=== PATIENT | female | born 1960 | race Two or more races ===

== ENCOUNTER → 2018-10-27 | Outpatient (CLI) | payer OTHER ==
[2016-08-09 15:14] VITALS: BP 130/79
[~2018-10-27] MED LIST: ASPI-630 PO; CETI10TA16 PO; ESCITALOPRAM OX10 MG PO; HYDR-2145 PO; HYDR12.58 PO; INSU100I11 SQ; INSU100V13 SQ; LAMO200T2 PO; LAMO50TA3 PO; LOSA-73 PO; LOSA25TA54 PO; METF10007 PO; METF500T16 PO; NEED1DIS MC; OMEP20TA8 PO; OMEP40CA5 PO; OXYC1TAB15 PO
--- NOTE | 2018-10-31 09:31 | KCIC ---
Bilateral digital screening mammograms with 3-D tomosynthesis: Reason for examination: Routine screening. Large hematoma right medial breast for one week possibly from carrying a box. Comparison is made to previous study dated 11/23/2014. Bilateral mammograms in CC and oblique projections were obtained with 2-D imaging and 3-D tomosynthesis imaging on a Siemens Inspiration unit and reviewed on the workstation. Interpretation was made with the benefit of CAD. The skin and nipples show no abnormalities. No abnormal axillary lymph nodes are seen. The breast parenchyma shows scattered fatty and fibroglandular density. (Breast density: Category B.) There are no dominant masses, suspicious calcifications or architectural distortion. Benign calcifications are present. Impression: No evidence of malignancy. Recommend routine screening. BI-RAD Category 2: Benign. "Our facility is accredited by the [employer] Mammography Program." This patient's information has been entered into a reminder system for the patient to be notified with the results of her examination and a target date for the next mammogram. Electronically signed by: Rosario Calles MD (10/31/2018 9:28 AM) [id number]
== END | disposition home or self-care (01) ==
LOC: KCIC 15:14
PROVIDERS: ATTEND Family Medicine
DX: Z12.31 Encounter for screening mammogram for malignant neoplasm of breast (principal); N64.89 Other specified disorders of breast
CPT/HCPCS: 77063; 77067

== ENCOUNTER → 2020-07-25 | Outpatient (CLI) | payer BC, OTHER ==
[2016-08-09 15:14] VITALS: BP 130/79
[~2020-07-25] MED LIST changes: -LAMO200T2 PO; +LAMO200T6 PO; +OMEP40CA45 PO; -OMEP40CA5 PO
--- NOTE | 2020-07-25 08:23 | RAD ---
Examination: Bilateral venous Doppler Indication: Leg swelling Technique: Ultrasound evaluation of the bilateral lower extremities was performed from the groin to t he upper calf with hooker scale, spectral and color doppler evaluation. Comparison: None Findings: There is normal venous flow and compressibility of bilateral common femoral veins, femoral veins, popliteal veins, and visualized proximal calf veins. Impression: No evidence for deep vein thrombosis of bilateral lower extremities from the level of the calf veins to the groins. Electronically signed by: Nigel Lamar MD (07/25/2020 8:21 AM) [id number]
== END ==
LOC: US 07:14
PROVIDERS: ATTEND Psychiatry & Neurology Neurology with Special Qualifications in Child Neurology
DX: M79.604 Pain in right leg (principal); M79.605 Pain in left leg
CPT/HCPCS: 93970

== ENCOUNTER 2021-01-24 19:31 | Emergency (ER) | payer BC ==
[~2021-01-24] VITALS: Ht 157.5 cm; Wt 95.0 kg
[~2021-01-24 19:31] MED LIST changes: -OMEP40CA45 PO; +OMEP40CA7 PO
[2021-01-24] MEDS ORDERED: ONDANSETRON PF 4 MG/2 ML VIAL. IVP ONE (21:15)
[2021-01-24] MEDS ORDERED: fentaNYL PF VIAL 100 MCG/2 ML VIAL IVP ONE (21:15)
[2021-01-24] MEDS ORDERED: FAMOTIDINE 20 MG/2 ML VIAL IVP ONE (21:15)
[2021-01-24 21:44] LABS: BASO # 0.1 x10^3/uL (0.0-0.2); BASO % 1 % (0-3); EOS # 0.1 x10^3/uL (0.0-0.7); EOS % 2 % (0-3); HEMATOCRIT 46.1 % (36.0-47.0); HEMOGLOBIN 14.9 g/dL (12.0-15.5); LYMPH # 2.8 x10^3/uL (1.0-4.8); LYMPH % 28 % (24-48); MEAN CORPUSCULAR HEMOGLOBIN 27 pg (25-35); MEAN CORPUSCULAR HGB CONC 32 g/dL (31-37); MEAN CORPUSCULAR VOLUME 83 fL (79-100); MONO # 0.8 x10^3/uL (0.0-1.1); MONO % 8 % (0-9); NEUT # 6.3 x10^3/uL (1.8-7.7); NEUT % 62 % (31-73); PLATELET COUNT 236 x10^3/uL (140-400); RED BLOOD COUNT 5.59 x10^6/uL (3.50-5.40); RED CELL DISTRIBUTION WIDTH 17.7 % (11.5-14.5); WHITE BLOOD COUNT 10.1 x10^3/uL (4.0-11.0)
[2021-01-24 21:46] LABS: BILIRUBIN,URINE MODERATE (NEG); CLARITY,URINE CLEAR; COLOR,URINE YELLOW; NITRITE,URINE NEGATIVE (NEG); PROTEIN,URINE NEGATIVE (NEG-TRACE)
[2021-01-24 21:53] LABS: AMPHETAMINE/METHAMPHETAMINE NEG (NEG); BARBITURATES NEG (NEG); BENZODIAZEPINES NEG (NEG); CANNABINOIDS NEG (NEG); COCAINE NEG (NEG); METHADONE NEG (NEG); OPIATES NEG (NEG); PHENCYCLIDINE NEG (NEG)
[2021-01-24 21:54] LABS: BACTERIA,URINE FEW /HPF (0-FEW); RBC,URINE OCC /HPF (0-2); WBC,URINE TNTC /HPF (0-4)
[2021-01-24 21:58] LABS: CALCIUM 9.6 mg/dL (8.5-10.1); CREATININE 0.9 mg/dL (0.6-1.0); GFR 64.1; POTASSIUM 3.1 mmol/L (3.5-5.1)
[2021-01-24 22:00] LABS: ALBUMIN 4.5 g/dL (3.4-5.0); ALBUMIN/GLOBULIN RATIO 1.3 (1.0-1.7); TOTAL BILIRUBIN 0.5 mg/dL (0.2-1.0)
[2021-01-24] MEDS ORDERED: IOHEXOL 300 MG/ML 100ML VIAL. IV ONE (22:15)
[2021-01-24] MEDS ORDERED: CONTRAST GIVEN. MC PRN (22:15)
--- NOTE | 2021-01-24 22:29 | RAD ---
Exam: CT of abdomen and pelvis with contrast INDICATION: Epigastric pain TECHNIQUE: Sequential axial images through the abdomen and pelvis obtained following the administrati on of 75 mL of Isovue-370 IV contrast. Sagittal and coronal reformatted images were reconstructed fro m the axial data and reviewed. Exposure: One or more of the following in the visualized dose reduction techniques were utilized for this examination: 1. Automated exposure control 2. Adjustment of the MA and/or KV according to patient size 3. Use of iterative of reconstructive technique Comparisons: None FINDINGS: Heart size is normal. No pericardial effusion. Strandy opacities the dependent portion lungs likely r epresenting atelectasis. No pleural effusion. Liver, spleen, pancreas and adrenals are unremarkable. Gallstone noted in the gallbladder is mildly distended. No perinephric inflammation or hydronephrosis. No renal or ureteral calculi are identified. Bladder is partially distended and not well evaluated. Uterus not enlarged. No abnormal adnexal mass. Large and small bowel are unremarkable. Appendix is normal. No free intra-abdominal air or fluid. No obstruction. Abdominal aorta has normal course and caliber. Abdominal vasculature is patent. No enlarged intra-abdominal lymph nodes are identified. No suspicious osseous lesions or acute fractures. IMPRESSION: 1. No acute process identified within the abdomen or pelvis. 2. Moderate amount stool noted in the colon, correlate for constipation. Electronically signed by: Nadya Quinn MD (01/24/2021 10:27 PM) [facility]
[2021-01-24] MEDS ORDERED: POTASSIUM BICARB 20 MEQ EFFERVESCENT TABLET. PO ONE (22:30)
[2021-01-24] MEDS ORDERED: BISACODYL 5 MG TABLET.DR. PO STA (23:15)
[2021-01-24] MEDS ORDERED: MAGNESIUM CITRATE 296 ML SOLUTION. PO ONE (23:15)
--- NOTE | 2021-01-24 23:17 | PHYS DOC ---
Past Medical History Past Medical History: Constipation, Diabetes-Type II, Seizure Past Surgical History: Other Additional Past Surgical Histo: RT CATARACT, RT MENISUCS REPAIR Smoking Status: Never Smoker Alcohol Use: None Drug Use: None General Adult EDM: Chief Complaint: NAUSEA/VOMITING/DIARRHEA HPI: HPI: Patient is a 60 year old female with a history of diabetes type 2, seizures, constipation, who presents to the ED today complaining of nausea and vomiting that began 5 days ago. Patient is also complaining of intermittent epigastric abdominal pain typically during vomiting episodes. Patient denies any fever. Denies any diarrhea. Denies any chest pain or shortness of breath. Review of Systems: Review of Systems: Constitutional: Denies fever or chills. [] Eyes: Denies change in visual acuity. [] HENT: Denies nasal congestion or sore throat. [] Respiratory: Denies cough or shortness of breath. [] Cardiovascular: Denies chest pain or edema. [] GI: Reports epigastric abdominal pain with nausea and vomiting, denies bloody stools or diarrhea. [] : Denies dysuria. [] Musculoskeletal: Denies back pain or joint pain. [] Integument: Denies rash. [] Neurologic: Denies headache, focal weakness or sensory changes. [] Psychiatric: Denies depression or anxiety. [] Heart Score: C/O Chest Pain: N/A Risk Factors: Risk Factors: DM, Current or recent (<one month) smoker, HTN, HLP, family history of CAD, obesity. Risk Scores: Score 0 - 3: 2.5% MACE over next 6 weeks - Discharge Home Score 4 - 6: 20.3% MACE over next 6 weeks - Admit for Clinical Observation Score 7 - 10: 72.7% MACE over next 6 weeks - Early Invasive Strategies Current Medications: Current Medications Medications (Trade) Dose Ordered Sig/Sue Start Time Stop Time Status Last Admin Dose Admin Famotidine (Pepcid Vial) 20 mg 1X ONCE 01/24/21 21:15 01/24/21 21:18 DC 01/24/21 21:38 20 MG Fentanyl Citrate (Fentanyl 2ml Vial) 50 mcg 1X ONCE 01/24/21 21:15 01/24/21 21:18 DC 01/24/21 21:41 50 MCG Info (CONTRAST GIVEN -- Rx MONITORING) 1 each PRN DAILY PRN 01/24/21 22:15 01/26/21 22:14 Iohexol (Omnipaque 300 Mg/ml) 75 ml 1X ONCE 01/24/21 22:15 01/24/21 22:16 DC 01/24/21 22:12 75 ML Ondansetron HCl (Zofran) 4 mg 1X ONCE 01/24/21 21:15 01/24/21 21:18 DC 01/24/21 21:38 4 MG Potassium Bicarbonate (Potassium Effervescent Tablet) 40 meq 1X ONCE 01/24/21 22:30 01/24/21 22:31 DC Allergies: Allergies: Allergies Coded Allergies Type Severity Reaction Last Updated Verified No Known Drug Allergies 05/18/13 No Physical Exam: PE: Constitutional: Well developed, well nourished, no acute distress, non-toxic appearance. [] HENT: Normocephalic, atraumatic, bilateral external ears normal, oropharynx moist, no oral exudates, nose normal. [] Eyes: PERRLA, EOMI, conjunctiva normal, no discharge. [] Neck: Normal range of motion, no tenderness, supple, no stridor. [] Cardiovascular:Heart rate regular rhythm, no murmur [] Lungs & Thorax: Bilateral breath sounds clear to auscultation [] Abdomen: Bowel sounds normal, soft, mild epigastric tenderness, no right upper quadrant or right lower quadrant tenderness, no masses, no pulsatile masses. [] Skin: Warm, dry, no erythema, no rash. [] Back: No tenderness, no CVA tenderness. [] Extremities: No tenderness, no cyanosis, no clubbing, ROM intact, no edema. [] Neurologic: Alert and oriented X 3, normal motor function, normal sensory func tion, no focal deficits noted. [] Psychologic: Affect normal, judgement normal, mood normal. [] Current Patient Data: Labs: Laboratory Tests Test 01/24/21 21:12 01/24/21 21:24 01/24/21 21:56 Urine Collection Type Unknown Urine Color Yellow Urine Clarity Clear Urine pH 6.0 (<5.0-8.0) Urine Specific [place] >=1.030 (1.000-1.030) Urine Protein Negative mg/dL (NEG-TRACE) Urine Glucose (UA) >=1000 mg/dL (NEG) Urine Ketones (Stick) >=80 mg/dL (NEG) Urine Blood Negative (NEG) Urine Nitrite Negative (NEG) Urine Bilirubin Moderate (NEG) Urine Urobilinogen Dipstick 1.0 mg/dL (0.2 mg/dL) Urine Leukocyte Esterase Small (NEG) Urine RBC Occ /HPF (0-2) Urine WBC Tntc /HPF (0-4) Urine Squamous Epithelial Cells Few /LPF Urine Bacteria Few /HPF (0-FEW) Urine Mucus Slight /LPF Urine Opiates Screen Neg (NEG) Urine Methadone Screen Neg (NEG) Urine Barbiturates Neg (NEG) Urine Phencyclidine Screen Neg (NEG) Urine Amphetamine/Methamphetamine Neg (NEG) Urine Benzodiazepines Screen Neg (NEG) Urine Cocaine Screen Neg (NEG) Urine Cannabinoids Screen Neg (NEG) Urine Ethyl Alcohol Neg (NEG) White Blood Count 10.1 x10^3/uL (4.0-11.0) Red Blood Count 5.59 x10^6/uL (3.50-5.40) H Hemoglobin 14.9 g/dL (12.0-15.5) Hematocrit 46.1 % (36.0-47.0) Mean Corpuscular Volume 83 fL (79-100) Mean Corpuscular Hemoglobin 27 pg (25-35) Mean Corpuscular Hemoglobin Concent 32 g/dL (31-37) Red Cell Distribution Width 17.7 % (11.5-14.5) H Platelet Count 236 x10^3/uL (140-400) Neutrophils (%) (Auto) 62 % (31-73) Lymphocytes (%) (Auto) 28 % (24-48) Monocytes (%) (Auto) 8 % (0-9) Eosinophils (%) (Auto) 2 % (0-3) Basophils (%) (Auto) 1 % (0-3) Neutrophils # (Auto) 6.3 x10^3/uL (1.8-7.7) Lymphocytes # (Auto) 2.8 x10^3/uL (1.0-4.8) Monocytes # (Auto) 0.8 x10^3/uL (0.0-1.1) Eosinophils # (Auto) 0.1 x10^3/uL (0.0-0.7) Basophils # (Auto) 0.1 x10^3/uL (0.0-0.2) Sodium Level 141 mmol/L (136-145) Potassium Level 3.1 mmol/L (3.5-5.1) L Chloride Level 99 mmol/L (98-107) Carbon Dioxide Level 28 mmol/L (21-32) Anion Gap 14 (6-14) Blood Urea Nitrogen 23 mg/dL (7-20) H Creatinine 0.9 mg/dL (0.6-1.0) Estimated GFR (Cockcroft-Gault) 64.1 BUN/Creatinine Ratio 26 (6-20) H Glucose Level 146 mg/dL (70-99) H Calcium Level 9.6 mg/dL (8.5-10.1) Total Bilirubin 0.5 mg/dL (0.2-1.0) Aspartate Amino Transferase (AST) 19 U/L (15-37) Alanine Aminotransferase (ALT) 28 U/L (14-59) Alkaline Phosphatase 83 U/L (46-116) Total Protein 8.0 g/dL (6.4-8.2) Albumin 4.5 g/dL (3.4-5.0) Albumin/Globulin Ratio 1.3 (1.0-1.7) Lipase 75 U/L (73-393) Ethyl Alcohol Level < 10 mg/dL (0-10) SARS-CoV-2 Antigen (Rapid) Negative (NEGATIVE) Laboratory Tests 01/24/21 21:24 Laboratory Tests 01/24/21 21:24 Vital Signs: Vital Signs Date Time Temp Pulse Resp B/P (MAP) Pulse Ox O2 Delivery O2 Flow Rate FiO2 01/24/21 21:41 12 96 Room Air 01/24/21 21:10 98.0 79 101/60 (74) 98.0 EKG: EKG: [] Radiology/Procedures: Radiology/Procedures: []PROCEDURE: CT ABD PELV W/ IV CONTRST ONLY Exam: CT of abdomen and pelvis with contrast INDICATION: Epigastric pain TECHNIQUE: Sequential axial images through the abdomen and pelvis obtained following the administration of 75 mL of Isovue-370 IV contrast. Sagittal and coronal reformatted images were reconstructed from the axial data and reviewed. Exposure: One or more of the following in the visualized dose reduction techniques were utilized for this examination: 1. Automated exposure control 2. Adjustment of the MA and/or KV according to patient size 3. Use of iterative of reconstructive technique Comparisons: None FINDINGS: Heart size is normal. No pericardial effusion. Strandy opacities the dependent portion lungs likely representing atelectasis. No pleural effusion. Liver, spleen, pancreas and adrenals are unremarkable. Gallstone noted in the gallbladder is mildly distended. No perinephric inflammation or hydronephrosis. No renal or ureteral calculi are identified. Bladder is partially distended and not well evaluated. Uterus not enlarged. No abnormal adnexal mass. Large and small bowel are unremarkable. Appendix is normal. No free intra- abdominal air or fluid. No obstruction. Abdominal aorta has normal course and caliber. Abdominal vasculature is patent. No enlarged intra-abdominal lymph nodes are identified. No suspicious osseous lesions or acute fractures. IMPRESSION: 1. No acute process identified within the abdomen or pelvis. 2. Moderate amount stool noted in the colon, correlate for constipation. Electronically signed by: Nadya Lai MD (01/24/2021 10:27 PM) [facility] DICTATED and SIGNED BY: NADYA LAI MD DATE: 01/24/21 [id number] 0 Course & Med Decision Making: Course & Med Decision Making Pertinent Labs and Imaging studies reviewed. (See chart for details) This is a 60-year-old female patient presenting today complaining of nausea, vomiting, and epigastric abdominal pain, symptoms for 5 days. CBC with no acute findings, CMP with potassium of 3.1, patient was given oral potassium replacement. UA negative for infection. Negative rapid Covid test CT of the abdomen and pelvic noted for moderate stool in the colon otherwise no acute findings. Patient was given mag citrate and Dulcolax in the ED. Educated on constipation prevention and management. Dragon Disclaimer: DragLogisticare Disclaimer: This electronic medical record was generated, in whole or in part, using a voice recognition dictation system. Departure Departure Impression: Primary Impression: Hypokalemia Additional Impressions: Constipation Qualified Codes: K59.00 - Constipation, unspecified Nausea and vomiting Qualified Codes: R11.2 - Nausea with vomiting, unspecified Epigastric pain Disposition: HOME / SELF CARE / HOMELESS Condition: STABLE Referrals: KALANI MAGDALENO MD (PCP) follow up next week Patient Instructions: Constipation, Adult, Hypokalemia Additional Instructions: You were evaluated in the emergency room and noted to be constipated. Please increase your dietary fiber intake as well as your water intake. Please take Mi raLAX every day to prevent constipation. Anytime you are constipated consider taking magnesium citrate or milk of magnesium. You can also perform an enema anytime you are constipated use a suppository when constipated Scripts Ondansetron (ONDANSETRON ODT) 4 Mg Tab.rapdis 1 TAB PO PRN Q6-8HRS, #16 TAB Prov: RIKI HURD APRN 01/24/21 Polyethylene Glycol 3350 (MIRALAX) 119 Gm Powder 17 GM PO DAILY for constipation, #255 GM 0 Refills dissolve in water Prov: RIKI UHRD APRN 01/24/21 RIKI HURD APRN Jan 24, 2021 23:17
[2021-01-24] MEDS ORDERED: POLY119P4 PO (23:26)
[2021-01-24] MEDS ORDERED: ONDA4TAB12 PO (23:26)
[2021-01-24 23:55] VITALS: BP 109/62
--- NOTE | 2021-01-26 10:04 | NUR ---
IP: Informed pt of negative covid test. Pt verbalized understanding.
== END 2021-01-25 00:02 | disposition home or self-care (01) ==
LOC: ER 19:31
DX: K59.00 Constipation, unspecified (principal); Z20.822 Contact with and (suspected) exposure to COVID-19; E87.6 Hypokalemia; E11.9 Type 2 diabetes mellitus without complications
CPT/HCPCS: 36415; 74177; 80053; 80307; 81001; 83690; 85025; 87086; 87147; 87426; 96374; 96375; 99285; G0480; J2405; J3010; J3490; Q9967; U0003; U0005

== ENCOUNTER 2021-01-31 10:30 | Emergency (ER) | payer BC ==
[~2021-01-31] VITALS: Ht 152.4 cm; Wt 82.9 kg
[~2021-01-31 10:30] MED LIST changes: +ONDA4TAB12 PO; +POLY119P4 PO
[2021-01-31] MEDS ORDERED: KETOROLAC 15 MG/ML VIAL. IVP ONE (11:00)
[2021-01-31] MEDS ORDERED: IV NORMAL SALINE 1000ML BAG 1,000 ML IV ONE (11:00)
--- NOTE | 2021-01-31 11:06 | PHYS DOC ---
Past Medical History Past Medical History: Constipation, Diabetes-Type II, Seizure (CHRISS CORREA APRN) Past Surgical History: Other Additional Past Surgical Histo: RT CATARACT, RT MENISCUS REPAIR (CHRISS CORREA APRN) Smoking Status: Never Smoker Alcohol Use: None Drug Use: None (CHRISS CORREA APRN) General Adult EDM: Chief Complaint: SEIZURE HPI: HPI: Patient is a 60-year-old female who presents to the emergency department today for seizure. positive seizure history. Patient has been reports that she had 30 second long seizure at 430 this morning. She was lying in bed when the seizure occurred, she did not fall or hit her head. stated that it was not a grand mal seizure but she had some tremors in her legs. She also reports that she had a seizure last night and reports hitting her head and falling but the fall was not witnessed by her . She is reporting right-sided neck pain and generalized head pain that she rates 10 out of 10. She took ibuprofen prior to arrival. She takes Lamictal, Trokendi and zonisamide for her seizures and she states that she has missed doses of her seizure medications because she had had some vomiting for the last week. (CHRISS CORREA APRN) Review of Systems: Review of Systems: 14 body systems of the review of systems have been reviewed. See HPI for pertinent positive and negative responses, otherwise all other systems are negative, nonpertinent or noncontributory (CHRISS CORREA APRN) Heart Score: C/O Chest Pain: N/A Risk Factors: Risk Factors: DM, Current or recent (<one month) smoker, HTN, HLP, family history of CAD, obesity. Risk Scores: Score 0 - 3: 2.5% MACE over next 6 weeks - Discharge Home Score 4 - 6: 20.3% MACE over next 6 weeks - Admit for Clinical Observation Score 7 - 10: 72.7% MACE over next 6 weeks - Early Invasive Strategies (CHRISS CORREA APRN) Current Medications: Current Medications Medications (Trade) Dose Ordered Sig/Sue Start Time Stop Time Status Last Admin Dose Admin Ketorolac Tromethamine (Toradol 15mg Vial) 15 mg 1X ONCE 01/31/21 11:00 01/31/21 11:01 DC Sodium Chloride 1,000 ml @ 1,000 mls/hr 1X ONCE 01/31/21 11:00 01/31/21 11:59 (CHRISS CORREA APRN) Allergies: Allergies: Allergies Coded Allergies Type Severity Reaction Last Updated Verified No Known Drug Allergies 05/18/13 No (CHRISS CORREA APRN) Physical Exam: PE: Constitutional: Well developed, well nourished, no acute distress, non-toxic ap pearance. [] HENT: Normocephalic, atraumatic, bilateral external ears normal, oropharynx moist, no oral exudates, nose normal. [] Eyes: PERRL, 4 mm pupils bilaterally, EOMI, conjunctiva normal, no discharge. [] Neck: Normal range of motion, right-sided paraspinal cervical tenderness with palpation, supple, no stridor. [] Cardiovascular:Heart rate regular rhythm, no murmur [] Lungs & Thorax: Bilateral breath sounds clear to auscultation [] Abdomen: Bowel sounds normal, soft, no tenderness, no masses, no pulsatile masses. [] Skin: Warm, dry, no erythema, no rash. [] Back: No tenderness, normal range of motion Extremities: No tenderness, no cyanosis, no clubbing, ROM intact, no edema. [] Neurologic: Alert and oriented X 3, normal motor function, normal sensory function, no focal deficits noted. [] Psychologic: Affect normal, judgement normal, mood normal. [] (CHRISS CORREA APRN) Current Patient Data: Labs: Laboratory Tests Test 01/31/21 11:00 01/31/21 11:44 White Blood Count 9.8 x10^3/uL Red Blood Count 5.83 x10^6/uL Hemoglobin 16.2 g/dL Hematocrit 47.8 % Mean Corpuscular Volume 82 fL Mean Corpuscular Hemoglobin 28 pg Mean Corpuscular Hemoglobin Concent 34 g/dL Red Cell Distribution Width 17.5 % Platelet Count 224 x10^3/uL Neutrophils (%) (Auto) 65 % Lymphocytes (%) (Auto) 26 % Monocytes (%) (Auto) 7 % Eosinophils (%) (Auto) 1 % Basophils (%) (Auto) 1 % Neutrophils # (Auto) 6.4 x10^3/uL Lymphocytes # (Auto) 2.5 x10^3/uL Monocytes # (Auto) 0.7 x10^3/uL Eosinophils # (Auto) 0.1 x10^3/uL Basophils # (Auto) 0.1 x10^3/uL Sodium Level 141 mmol/L Potassium Level 2.9 mmol/L Chloride Level 100 mmol/L Carbon Dioxide Level 27 mmol/L Anion Gap 14 Blood Urea Nitrogen 17 mg/dL Creatinine 1.1 mg/dL Estimated GFR (Cockcroft-Gault) 50.8 BUN/Creatinine Ratio 15 Glucose Level 117 mg/dL Lactic Acid Level 1.8 mmol/L Calcium Level 9.7 mg/dL Magnesium Level 2.2 mg/dL Total Bilirubin 0.5 mg/dL Aspartate Amino Transf (AST/SGOT) 25 U/L Alanine Aminotransferase (ALT/SGPT) 33 U/L Alkaline Phosphatase 97 U/L Total Protein 8.0 g/dL Albumin 4.5 g/dL Albumin/Globulin Ratio 1.3 Urine Collection Type Unknown Urine Color Yellow Urine Clarity Clear Urine pH 6.0 Urine Specific [place] >=1.030 Urine Protein 30 mg/dL Urine Glucose (UA) >=1000 mg/dL Urine Ketones (Stick) 40 mg/dL Urine Blood Small Urine Nitrite Negative Urine Bilirubin Large Urine Urobilinogen Dipstick 1.0 mg/dL Urine Leukocyte Esterase Moderate Urine RBC 6-10 /HPF Urine WBC 5-10 /HPF Urine Squamous Epithelial Cells Mod /LPF Urine Bacteria Moderate /HPF Urine Mucus Marked /LPF Current Medications Medications (Trade) Dose Ordered Sig/Sue Route PRN Reason Start Time Stop Time Status Last Admin Dose Admin Sodium Chloride 1,000 ml @ 1,000 mls/hr 1X ONCE IV 01/31/21 11:00 01/31/21 11:59 DC 01/31/21 11:28 Ketorolac Tromethamine (Toradol 15mg Vial) 15 mg 1X ONCE IVP 01/31/21 11:00 01/31/21 11:01 DC 01/31/21 11:28 Vital Signs: Vital Signs Date Time Temp Pulse Resp B/P (MAP) Pulse Ox O2 Delivery O2 Flow Rate FiO2 01/31/21 10:33 97.6 76 20 111/73 (86) 99 Room Air 97.6 (CHRISS CORREA COMMUNITY HEALTH REPRESENTATIVE) EKG: EKG: EKG performed by ER staff at 1044 shows sinus rhythm with a rate of 72, QTc 451, no STEMI read by Dr. Dukes at 1125[] (CHRISS CORREA APRN) Radiology/Procedures: Radiology/Procedures: [] (CHRISS CORREA APRN) Course & Med Decision Making: Course & Med Decision Making Pertinent Labs and Imaging studies reviewed. (See chart for details) Patient presents to the emergency department today for 30 second long seizure that occurred this morning. Patient is reporting generalized head pain and right-sided neck pain. Work-up in the ER consisted of blood work, EKG, CT imaging of head and neck. Patient treated with IV fluids and pain medication. Patient CT imaging of her head neck was unremarkable. Her CBC was unremarkable. She was noted to have hypokalemia and this was replaced in the ER. She had a normal magnesium. Patient tolerating oral intake. She is requesting additional pain m,ecication for her neck pain, felxeril orderd for muscular pain. No lactic acidosis was noted. Patient advised to continue taking her seizure medicationsand follow-up with her primary care provider. I discussed with patient all findings and diagnostic testing as well as the need to follow-up with PCP for further evaluation and treatment or return to the ER if any new or worsening symptoms. Strict return precautions were also discussed at length. Patient voiced understanding and agreement with the plan. Patient is hemodynamically stable at the time of disposition. (CHRISS CORREA APRN) Dragon Disclaimer: Dragon Disclaimer: This electronic medical record was generated, in whole or in part, using a voice recognition dictation system. (CHRISS CORREA APRN) Departure Departure Impression: Primary Impression: Hypokalemia Additional Impression: Seizure Disposition: 01 HOME / SELF CARE / HOMELESS Condition: GOOD Referrals: KALANI MAGDALENO MD (PCP) Patient Instructions: Hypokalemia, Seizure, Adult Additional Instructions: You were seen in the emergency department today for a seizure. Your lab work was unremarkable. Your CT scan of your head and neck was unremarkable. Your pain treated in the ER with pain medication. You can take Tylenol and/or ibuprofen for your neck pain. You were noted to have a low potassium level in the ER, ensure that you are eating potassium rich foods like green leafy vegetables and bananas. Continue to take your seizure medications as prescribed. Follow-up with your primary care provider tomorrow regarding your ER visit. Return to the emergency department if you have another seizure, fall, chest pain, shortness of breath, vision changes or any new or worsening concerns. EMERGENCY DEPARTMENT GENERAL DISCHARGE INSTRUCTIONS Thank you for coming to [facility] Emergency Department (ED) today and trusting us with you care. We trust that you had a positive experience in our Emergency Department. If you wish to speak to the department management, you may call the Director at [phone]. YOUR FOLLOW UP INSTRUCTIONS ARE FOLLOWS: 1. Do you have a private Doctor? If you do not have a private doctor, please ask for a resource list of physicians or clinics that may be able to assist you with follow up care. 2. The Emergency Physicain has interpreted your x-rays. The X-Ray specialist will also review them. If there is a change in the findings, you will be notified in 48 hours when at all possible. 3. A lab test or culture has been done, your results will be reviewed and you will be notified if you need a change in treatment. ADDITIONAL INSTRUCTIONS AND INFORMATION: 1. Your care today has been supervised by a physician who is specially trained in emergency care. Many problems require more than one evaluation for a complete diagnosis and treatment. We recommend that you schedule your follow up appointment as recommended to ensure complete treatment of you illness or injury. If you are unable to obtain follow up care and continue to have a problem, or if your condition worsens, we recommend that you return to the ED. 2. We are not able to safely determine your condition over the phone nor are we able to give sound medical advice over the phone. For these safety reasons, if you call for medical advice we will ask you to come to the ED for further evaluation. 3. If you have any questions regarding these discharge instructions please call the ED at [phone]. SAFETY INFORMATION: In the interest of safety, wellness, and injury prevention; we encourage you to wear your sealbelt, if you smoke; quite smoking, and we encourage family to use a protective helmet for bicycling and other sporting events that present an increased risk for head injury. IF YOUR SYMPTOMS WORSEN OR NEW SYMPTOMS DEVELOP, OR YOU HAVE CONCERNS ABOUT YOUR CONDITION; OR IF YOUR CONDITION WORSENS WHILE YOU ARE WAITING FOR YOUR FOLLOW UP APPOINTMENT; EITHER CONTACT YOUR PRIMARY CARE DOCTOR, THE PHYSICIAN WHOSE NAME AND NUMBER YOU WERE GIVEN, OR RETURN TO THE ED IMMEDIATELY. Attending Signature I have participated in the care of this patient and I have reviewed and agree with all pertinent clinical information above including history, exam, and recommendations. (DAMIR DUKES DO) CHRISS CORREA APRN Jan 31, 2021 11:06 DAMIR DUKES DO Jan 31, 2021 13:23
[2021-01-31 11:16] LABS: BASO # 0.1 x10^3/uL (0.0-0.2); BASO % 1 % (0-3); EOS # 0.1 x10^3/uL (0.0-0.7); EOS % 1 % (0-3); HEMATOCRIT 47.8 % (36.0-47.0); HEMOGLOBIN 16.2 g/dL (12.0-15.5); LYMPH # 2.5 x10^3/uL (1.0-4.8); LYMPH % 26 % (24-48); MEAN CORPUSCULAR HEMOGLOBIN 28 pg (25-35); MEAN CORPUSCULAR HGB CONC 34 g/dL (31-37); MEAN CORPUSCULAR VOLUME 82 fL (79-100); MONO # 0.7 x10^3/uL (0.0-1.1); MONO % 7 % (0-9); NEUT # 6.4 x10^3/uL (1.8-7.7); NEUT % 65 % (31-73); PLATELET COUNT 224 x10^3/uL (140-400); RED BLOOD COUNT 5.83 x10^6/uL (3.50-5.40); RED CELL DISTRIBUTION WIDTH 17.5 % (11.5-14.5); WHITE BLOOD COUNT 9.8 x10^3/uL (4.0-11.0)
[2021-01-31 11:27] LABS: ALBUMIN 4.5 g/dL (3.4-5.0); ALBUMIN/GLOBULIN RATIO 1.3 (1.0-1.7); CALCIUM 9.7 mg/dL (8.5-10.1); CREATININE 1.1 mg/dL (0.6-1.0); GFR 50.8; TOTAL BILIRUBIN 0.5 mg/dL (0.2-1.0)
[2021-01-31 11:32] LABS: POTASSIUM 2.9 mmol/L (3.5-5.1)
--- NOTE | 2021-01-31 11:40 | RAD ---
Exam Date: 01/31/2021 11:[address] HEAD AND C-SPINE WO Indication: Reason: seizure/fall / Spl. Instructions: / History: . One or more of the following dose reduction techniques were utilized: *Automated exposure control (AEC) *Adjustment of mA and/or kV according to patient size *Use of iterative reconstruction technique *CT scan done according to ALARA, or ALARA/IMAGE GENTLY EXAMINATION: CT OF THE HEAD WITHOUT CONTRAST INDICATION: Trauma, head injury, headache; TECHNIQUE: Noncontrast helical axial CT images of the head were obtained. COMPARISON: August 06, 2016 FINDINGS: The ventricles and sulci are normal for the patient's stated age. There is no evidence of acute int racranial hemorrhage, extra-axial collection, mass effect, midline shift, or acute territorial infarc t. No lesion of the skull base or the calvarium is seen. The visualized paranasal sinuses, mastoid ai r cells, and orbits are normal in appearance. IMPRESSION: No evidence for acute intracranial abnormality. EXAMINATION: CT OF THE CERVICAL SPINE WITHOUT CONTRAST Clinical Indication: Cervical spine pain after trauma Technique: Thin cut helical axial CT images through the cervical spine were obtained without contrast on a multi-detector CT scanner. Source data was then reconstructed into sagittal and coronal planes. Findings: Alignment is maintained without spondylolisthesis. Vertebral body heights are maintained without acute fracture. Mild to moderate multilevel degenerativ e changes are noted. No significant prevertebral soft tissue swelling is demonstrated. No severe osse ous central canal stenosis is seen. Impression: No evidence of acute cervical spine fracture or subluxation. Electronically signed by: Tommy Ross MD (01/31/2021 11:38 AM) [id number]
[2021-01-31 12:00] LABS: BILIRUBIN,URINE LARGE (NEG); CLARITY,URINE CLEAR; COLOR,URINE YELLOW; NITRITE,URINE NEGATIVE (NEG); PROTEIN,URINE 30 mg/dL (NEG-TRACE)
[2021-01-31 12:10] LABS: BACTERIA,URINE MODERATE /HPF (0-FEW)
[2021-01-31] MEDS ORDERED: POTASSIUM CHLORIDE 20 MEQ TABLET.ER. PO ONE ×3 (12:45→14:45)
[2021-01-31] MEDS ORDERED: CYCLOBENZAPRINE 10 MG TABLET. PO ONE (12:45)
[2021-01-31] MEDS ORDERED: CYCLOBENZAPRINE 10 MG TABLET. ONE (12:50)
[2021-01-31 12:53] VITALS: BP 90/58
--- NOTE | 2021-01-31 13:16 | EKG ---
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
== END 2021-01-31 13:10 | disposition home or self-care (01) ==
LOC: ER 10:30
DX: R56.9 Unspecified convulsions (principal); E87.6 Hypokalemia; M54.2 Cervicalgia; E11.9 Type 2 diabetes mellitus without complications
CPT/HCPCS: 36415; 70450; 72125; 80053; 81001; 83605; 83735; 85025; 87086; 93005; 96361; 96374; 99285; J1885; J7030

== ENCOUNTER 2021-02-12 12:44 | Inpatient (IN) | payer BC ==
[~2021-02-12] VITALS: Ht 157.5 cm; Wt 88.0 kg
--- NOTE | 2021-02-12 13:22 | RAD ---
Exam performed: One view chest. Indication: Reason: cp / Spl. Instructions: / History: Date of Service: 02/12/2021 1:11 PM Comparison: None available. Single AP upright portable view chest findings: Cardiomediastinal silhouette is within limits of normal. No acute infiltrates, effusion or pneumotho rax is detected. The bony structures are normal. Impression: No acute cardiopulmonary process is detected. Electronically signed by: Therese Macdonald MD (02/12/2021 1:20 PM) [facility]ITALCedrick
[2021-02-12] MEDS ORDERED: ONDANSETRON PF 4 MG/2 ML VIAL. IVP ONE (13:30)
[2021-02-12 14:03] LABS: BASO # 0.1 x10^3/uL (0.0-0.2); BASO % 1 % (0-3); EOS # 0.1 x10^3/uL (0.0-0.7); EOS % 1 % (0-3); HEMOGLOBIN 15.6 g/dL (12.0-15.5); LYMPH # 1.6 x10^3/uL (1.0-4.8); LYMPH % 20 % (24-48); MEAN CORPUSCULAR HEMOGLOBIN 28 pg (25-35); MEAN CORPUSCULAR HGB CONC 33 g/dL (31-37); MEAN CORPUSCULAR VOLUME 84 fL (79-100); MONO # 0.4 x10^3/uL (0.0-1.1); MONO % 5 % (0-9); NEUT # 5.7 x10^3/uL (1.8-7.7); NEUT % 72 % (31-73); PLATELET COUNT 267 x10^3/uL (140-400); RED BLOOD COUNT 5.63 x10^6/uL (3.50-5.40); RED CELL DISTRIBUTION WIDTH 17.9 % (11.5-14.5)
[2021-02-12 14:20] LABS: CALCIUM 9.1 mg/dL (8.5-10.1); CREATININE 0.8 mg/dL (0.6-1.0); GFR 73.4; POTASSIUM 3.5 mmol/L (3.5-5.1)
--- NOTE | 2021-02-12 14:22 | PHYS DOC ---
Past Medical History Past Medical History: Constipation, Diabetes-Type II, Seizure Past Surgical History: Other Additional Past Surgical Histo: RT CATARACT, RT MENISCUS REPAIR Smoking Status: Never Smoker Alcohol Use: None Drug Use: None General Adult EDM: Chief Complaint: ABDOMINAL PAIN HPI: HPI: 60-year-old female past medical history of diabetes, epilepsy, neuropathy, anx iety, depression and seasonal allergies, presents to the ED with her mother, (patient consents to his/her/their knowledge and involvement in pts' medical care), complaints of "my gall stones have gotten worse." Reports history of intermittent right upper quadrant abdominal pain, now with vomiting for the past week, stating she "can't even hold down water," for the past 2 days. Has been unable to take her lamotrigine and zamoxamide for her epilepsy. Seen in the ED 2 weeks ago (01/24-CT c/w constipation, gallstone and mildly dilated gall bladder) for this was also seen at [facility] 02/08-she refused to be admitted at that time because she wanted to be admitted at [facility] by her pcp, Dr. Yoni pardo. Review of Systems: Review of Systems: Constitutional: Denies fever or chills. [] Eyes: Denies change in visual acuity. [] HENT: Denies nasal congestion or sore throat. [] Respiratory: Denies cough or shortness of breath. [] Cardiovascular: Denies chest pain or edema. [] GI: Denies bloody stools or diarrhea. [] : Denies dysuria or vaginal bleeding Musculoskeletal: Denies back pain or joint pain. [] Integument: Denies rash or diaphoresis Neurologic: Denies headache, focal weakness or sensory changes. [] Endocrine: Denies polyuria or polydipsia. [] Lymphatic: Denies swollen glands. [] Psychiatric: Denies depression or anxiety. [] Heart Score: C/O Chest Pain: No Risk Factors: Risk Factors: DM, Current or recent (<one month) smoker, HTN, HLP, family history of CAD, obesity. Risk Scores: Score 0 - 3: 2.5% MACE over next 6 weeks - Discharge Home Score 4 - 6: 20.3% MACE over next 6 weeks - Admit for Clinical Observation Score 7 - 10: 72.7% MACE over next 6 weeks - Early Invasive Strategies Current Medications: Current Medications Medications (Trade) Dose Ordered Sig/Sue Start Time Stop Time Status Last Admin Dose Admin Ondansetron HCl (Zofran) 8 mg 1X ONCE 02/12/21 13:30 02/12/21 13:31 DC 02/12/21 14:13 8 MG Allergies: Allergies: Allergies Coded Allergies Type Severity Reaction Last Updated Verified No Known Drug Allergies 05/18/13 No Physical Exam: PE: Constitutional: no acute distress, non-toxic appearance. HENT: Normocephalic, atraumatic, dry mucous membranes Eyes: EOMI, conjunctiva normal, no discharge. Neck: Normal range of motion, supple, Cardiovascular: S1/2 present, regular rhythm Lungs & Thorax: Speaking in full sentences, bilateral equal chest rise, no tachypnea or increased work of breathing Abdomen: soft, tender right upper quadrant with Moreland sign Skin: Warm, dry, no erythema, no rash. [] Back: No tenderness, no CVA tenderness. [] Extremities: No tenderness, no cyanosis, no lower extremity edema Neurologic: Alert and oriented X 3, normal motor function, normal sensory function, no focal deficits noted. [] Psychologic: Affect normal, judgement normal, mood normal. [] Current Patient Data: Labs: Laboratory Tests Test 02/12/21 13:54 White Blood Count 8.0 x10^3/uL (4.0-11.0) Red Blood Count 5.63 x10^6/uL (3.50-5.40) H Hemoglobin 15.6 g/dL (12.0-15.5) H Hematocrit 47.0 % (36.0-47.0) Mean Corpuscular Volume 84 fL (79-100) Mean Corpuscular Hemoglobin 28 pg (25-35) Mean Corpuscular Hemoglobin Concent 33 g/dL (31-37) Red Cell Distribution Width 17.9 % (11.5-14.5) H Platelet Count 267 x10^3/uL (140-400) Neutrophils (%) (Auto) 72 % (31-73) Lymphocytes (%) (Auto) 20 % (24-48) L Monocytes (%) (Auto) 5 % (0-9) Eosinophils (%) (Auto) 1 % (0-3) Basophils (%) (Auto) 1 % (0-3) Neutrophils # (Auto) 5.7 x10^3/uL (1.8-7.7) Lymphocytes # (Auto) 1.6 x10^3/uL (1.0-4.8) Monocytes # (Auto) 0.4 x10^3/uL (0.0-1.1) Eosinophils # (Auto) 0.1 x10^3/uL (0.0-0.7) Basophils # (Auto) 0.1 x10^3/uL (0.0-0.2) Laboratory Tests 02/12/21 13:54 Vital Signs: Vital Signs Date Time Temp Pulse Resp B/P (MAP) Pulse Ox O2 Delivery O2 Flow Rate FiO2 02/12/21 12:49 99.0 89 16 145/81 (102) 99 Room Air 99.0 EKG: EKG: [] Radiology/Procedures: Radiology/Procedures: IMAGING REPORT Signed PATIENT: GRIFFIN GRIMES ACCOUNT: [id number] : 1960 LOCATION: ER AGE: 60 SEX: M EXAM STATUS: PRE ER ORD. PHYSICIAN: PEGGY BACK DO REASON: dizziness PROCEDURE: PORTABLE CHEST 1V Exam performed: One view chest. Indication: Reason: dizziness / Spl. Instructions: / History: Date of Service: 02/12/2021 2:41 PM Comparison: Two-view chest from 12/31/2018 a nd priors. Single AP upright portable view chest findings: Cardiomediastinal silhouette is within limits of normal. Previous median sternotomy. No acute infiltrates, effusion or pneumothorax is detected. The bony structures are normal. Impression: No acute cardiopulmonary process is detected. Electronically signed by: Therese Macdonald MD (02/12/2021 2:49 PM) [facility] DICTATED and SIGNED BY: THERESE MACDONALD MD DATE: 02/12/21 [id number] IMAGING REPORT Signed PATIENT: NICK VEGA ACCOUNT: [id number] : 1960 LOCATION: ER AGE: 60 SEX: F EXAM STATUS: REG ER ORD. PHYSICIAN: PEGGY BACK DO REASON: ruq 0pain PROCEDURE: ABDOMEN LTD Exam performed: Limited right upper quadrant sonogram. Indication: Abdominal bloating and distention with a history of lymphoma Date of Service: 02/12/2021 . Comparison:CT abdomen and pelvis from 01/24/2021 Technique: Real-time grayscale imaging of the right upper abdomen is performed and images are obtained. Findings: The liver is normal in size and echogenicity without any focal lesions. There is no intra or extrahepatic biliary ductal dilatation. The common bile duct measures4.4 mm mm. The gallbladder is well distended containing a large shadowing calculus. No evidence of gallbladder wall thickening noted.. The right kidney appears unremarkable and measures 10.1 x 4.9 x 4.7 cm in size. There is no hydronephrosis or perinephric fluid collection. Pancreas IVC and aorta are obscured due to overlying bowel gas Impression: 1. Cholelithiasis, otherwise unremarkable study. Electronically signed by: Therese Macdonald MD (02/12/2021 3:59 PM) [facility] DICTATED and SIGNED BY: THERESE MACDONALD MD DATE: 02/12/21 [id number] IMAGING REPORT Signed PATIENT: NICK VEGA ACCOUNT: [id number] : 1960 LOCATION: ER AGE: 60 SEX: F EXAM STATUS: REG ER ORD. PHYSICIAN: PEGGY BACK DO REASON: ruq pain and vomiting PROCEDURE: CT ABD PELV W/ IV CONTRST ONLY PQRS Compliance Statement: One or more of the following individualized dose reduction techniques were utilized for this examination: 1. Automated exposure control 2. Adjustment of the mA and/or kV according to patient size 3. Use of iterative reconstruction technique Exam performed: CT abdomen and pelvis with contrast HISTORY: Right upper quadrant abdominal pain and vomiting. DATE OF SERVICE: 02/12/2021. COMPARISON: CT abdomen and pelvis from 01/24/2021. TECHNIQUE: Contiguous helical acquisitions are obtained through the abdomen and pelvis administration of IV contrast. Sagittal and coronal reformatted images are obtained and reviewed. FINDINGS: The lung bases are clear. Visualized heart is normal. The liver, spleen and pancreas are normal. Cholelithiasis. Both adrenal glands and bilateral kidneys are normal in size with symmetric contrast via both kidneys. Small and large bowel loops are nondilated and unremarkable. Appendix is not clearly seen. Urinary bladder is decompressed. Enlarged myomatous uterus. No adnexal masses are seen. No free fluid. Spondylotic changes and degenerative disc disease involving L5-S1 level. IMPRESSION: No acute intra-abdominal or pelvic process seen. Cholelithiasis. Enlarged myomatous uterus. Evaluation with pelvic ultrasound may be obtained if indicated. Electronically signed by: Therese Macdonald MD (02/12/2021 4:03 PM) [facility] DICTATED and SIGNED BY: THERESE MACDONALD MD DATE: 02/12/21 [id number] Course & Med Decision Making: Course & Med Decision Making Pertinent Labs and Imaging studies reviewed. (See chart for details) Concern for intractable nausea and vomiting with elevated anion gap in the setting of ketonuria, normal lactic acidosis. Patient does not meet sepsis criteria and is hemodynamically stable. Imaging consistent with cholelithiasis with no evidence of cholecystitis. On repeat evaluation patient with persistent nausea and vomiting. Will admit to Dr. Rich who is covering for Dr. Magdaleno, for further medical management. Patient stable time of admission and agrees with this plan. I have spoken with the patient and/or caregivers. I have explained the patient' s condition, diagnosis and treatment plan based on the information available to me at this time. I have answered the patient's and/or caregivers questions and answered any concerns. The patient and/or caregivers have as good an understanding of the patient's diagnosis, condition and treatment plan as can be expected at this point. The patient has been stabilized within the capability of the emergency department. The patient will be transported for further care and management or will be moved to an observation or inpatient service. I have communicated with the staff or medical practitioner taking over this patient's care. Dragon Disclaimer: Dragon Disclaimer: This electronic medical record was generated, in whole or in part, using a voice recognition dictation system. Departure Departure Impression: Primary Impression: Intractable nausea and vomiting Additional Impression: Ketonuria Disposition: ADMITTED INPATIENT Admitting Physician: Jah Rich Condition: STABLE Referrals: KALANI MAGDALENO MD (PCP) PEGGY BACK DO Feb 12, 2021 14:22
[2021-02-12 14:25] LABS: ALBUMIN 4.1 g/dL (3.4-5.0); ALBUMIN/GLOBULIN RATIO 1.2 (1.0-1.7); MAGNESIUM 2.1 mg/dL (1.8-2.4); TOTAL BILIRUBIN 0.4 mg/dL (0.2-1.0); TOTAL PROTEIN 7.4 g/dL (6.4-8.2)
[2021-02-12 14:40] LABS: BARBITURATES NEG (NEG); BENZODIAZEPINES NEG (NEG); CANNABINOIDS NEG (NEG); COCAINE NEG (NEG); METHADONE NEG (NEG); OPIATES NEG (NEG); PHENCYCLIDINE NEG (NEG)
[2021-02-12 14:41] LABS: AMPHETAMINE/METHAMPHETAMINE NEG (NEG)
[2021-02-12] MEDS ORDERED: IV NORMAL SALINE 1000ML BAG 1,000 ML IV ONE (15:00)
[2021-02-12] MEDS ORDERED: CONTRAST GIVEN. MC PRN (16:00)
[2021-02-12] MEDS ORDERED: IOHEXOL 300 MG/ML 100ML VIAL. IV ONE (16:00)
--- NOTE | 2021-02-12 16:01 | RAD ---
Exam performed: Limited right upper quadrant sonogram. Indication: Abdominal bloating and distention with a history of lymphoma Date of Service: 02/12/2021 . Comparison:CT abdomen and pelvis from 01/24/2021 Technique: Real-time grayscale imaging of the right upper abdomen is performed and images are obtaine d. Findings: The liver is normal in size and echogenicity without any focal lesions. There is no intra or extrahe patic biliary ductal dilatation. The common bile duct measures4.4 mm mm. The gallbladder is well di stended containing a large shadowing calculus. No evidence of gallbladder wall thickening noted.. T he right kidney appears unremarkable and measures 10.1 x 4.9 x 4.7 cm in size. There is no hydroneph rosis or perinephric fluid collection. Pancreas IVC and aorta are obscured due to overlying bowel gas Impression: 1. Cholelithiasis, otherwise unremarkable study. Electronically signed by: Therese Macdonald MD (02/12/2021 3:59 PM) [facility]
--- NOTE | 2021-02-12 16:05 | RAD ---
PQRS Compliance Statement: One or more of the following individualized dose reduction techniques were utilized for this examinat ion: 1. Automated exposure control 2. Adjustment of the mA and/or kV according to patient size 3. Use of iterative reconstruction technique Exam performed: CT abdomen and pelvis with contrast HISTORY: Right upper quadrant abdominal pain and vomiting. DATE OF SERVICE: 02/12/2021. COMPARISON: CT abdomen and pelvis from 01/24/2021. TECHNIQUE: Contiguous helical acquisitions are obtained through the abdomen and pelvis administration of IV contrast. Sagittal and coronal reformatted images are obtained and reviewed. FINDINGS: The lung bases are clear. Visualized heart is normal. The liver, spleen and pancreas are normal. Cholelithiasis. Both adrenal glands and bilateral kidneys are normal in size with symmetric contrast via both kidneys. Small and large bowel loops are nondilat ed and unremarkable. Appendix is not clearly seen. Urinary bladder is decompressed. Enlarged myomatous uterus. No adnexal masses are seen. No free fluid . Spondylotic changes and degenerative disc disease involving L5-S1 level. IMPRESSION: No acute intra-abdominal or pelvic process seen. Cholelithiasis. Enlarged myomatous uterus. Evaluation with pelvic ultrasound may be obtained if indicated. Electronically signed by: Therese Macdonald MD (02/12/2021 4:03 PM) [facility]
[2021-02-12 16:50] LABS: BILIRUBIN,URINE MODERATE (NEG); CLARITY,URINE CLEAR; COLOR,URINE YELLOW; NITRITE,URINE NEGATIVE (NEG); PH,URINE 5.5 (<5.0-8.0); PROTEIN,URINE NEGATIVE (NEG-TRACE)
[2021-02-12 17:04] LABS: ETHANOL < 10 mg/dL (0-10); SALIC 1.4 mg/dL (2.8-20.0)
[2021-02-12 17:09] LABS: BACTERIA,URINE FEW /HPF (0-FEW)
[2021-02-12 17:10] LABS: YEAST,URINE PRESENT /HPF
[2021-02-12] MEDS ORDERED: ONDANSETRON PF 4 MG/2 ML VIAL. IVP PRN (17:45)
[2021-02-12] MEDS ORDERED: METOCLOPRAMIDE HCL 10 MG/2 ML VIAL. IVP ONE (17:45)
[2021-02-12] MEDS ORDERED: FAMOTIDINE 20 MG/2 ML VIAL IVP ONE (17:45)
[2021-02-12 19:00] VITALS: BP 117/73
[2021-02-12] MEDS: IV NORMAL SALINE 1000ML BAG 1,000 ML IV SCH (20:23)
[2021-02-12] MEDS: MORPHINE SULFATE 2 MG/ML INJ. IVP PRN (20:24)
[2021-02-12 23:07] VITALS: BP 114/62
[2021-02-13] MEDS: MORPHINE SULFATE 2 MG/ML INJ. IVP PRN ×2 (00:24→07:24)
[2021-02-13] MEDS ORDERED: GABA300C18 PO (01:02)
[2021-02-13] MEDS ORDERED: INSU100V37 SQ (01:02)
[2021-02-13] MEDS ORDERED: DULA0.75 SQ (01:02)
[2021-02-13] MEDS ORDERED: ZONI100C33 PO (01:02)
[2021-02-13] MEDS ORDERED: SERT100T PO (01:02)
[2021-02-13] MEDS ORDERED: TOPI100C6 PO (01:02)
--- NOTE | 2021-02-13 01:37 | EKG ---
[facility] [address] [place] [address] Test Date: 2021-02-12 Test Time: 12:55:22 Pat Name: NICK VEGA Department: Room: Gender: F [employer]: : 1960 Requested By: PEGGY BACK Order Number: [id number] Reading MD: Measurements Intervals [place] Rate: 85 P: 9 DE: 146 QRS: -56 QRSD: 88 T: 80 QT: 364 QTc: 439 Interpretive Statements SINUS RHYTHM LEFT ATRIAL ABNORMALITY ABNORMAL LEFT AXIS DEVIATION R-S TRANSITION ZONE IN V LEADS DISPLACED TO THE LEFT LEFT ANTERIOR FASCICULAR BLOCK T ABNORMALITY IN HIGH LATERAL LEADS ABNORMAL ECG RI6.02 No previous ECG available for comparison
[2021-02-13 03:21] VITALS: BP 138/68
[2021-02-13] MEDS: IV NORMAL SALINE 1000ML BAG 1,000 ML IV SCH ×2 (05:18→16:00)
[2021-02-13 07:00] VITALS: BP 139/73
[2021-02-13] MEDS: ONDANSETRON PF 4 MG/2 ML VIAL. IVP PRN ×3 (07:23→22:28)
[2021-02-13 11:00] VITALS: BP 129/66
--- NOTE | 2021-02-13 11:24 | NUR ---
SW following. Discussed with RN, pt from home with family, room air, NPO, rapid COVID-19 negative. Surgery following. RN advised no SW needs at this time. SW will continue to follow.
--- NOTE | 2021-02-13 12:05 | PDOC2 ---
LOU MARTINI MANAGER ACQUISITION 02/13/21 1205: CONSULT Date of Consult Date of Consult DATE: 02/13/21 TIME: 12:02 Reason for Consult Reason for Consult: cholecystitis Referring Physician Referring Physician: er Identification/Chief Complaint Chief Complaint abdominal pain Source Source: Chart review, Patient History of Present Illness Reason for Visit: RUQ pain with radiation to back, significant nausea. Lack of appetite. Past Medical History Cardiovascular: HTN, Syncope CENTRAL NERVOUS SYSTEM: Migraine, Seizure GI: GERD Psych: Anxiety, Depression Musculoskeletal: Osteoarthritis Endocrine: Diabetes Past Surgical History Past Surgical History: Other Family History Family History: Other (noncontributory to current illness ) Social History No ALCOHOL: none Drugs: None Lives: with Family Current Problem List Problem List Problems Medical Problems: (1) Intractable nausea and vomiting Status: Acute (2) Ketonuria Status: Acute Current Medications Current Medications Current Medications Ondansetron HCl (Zofran) 8 mg 1X ONCE IVP Last administered on 02/12/21at 14:13; Start 02/12/21 at 13:30; Stop 02/12/21 at 13:31; Status DC Sodium Chloride 1,000 ml @ 1,000 mls/hr 1X ONCE IV Last administered on 02/12/21at 16:30; Start 02/12/21 at 15:00; Stop 02/12/21 at 15:59; Status DC Iohexol (Omnipaque 300 Mg/ml) 75 ml 1X ONCE IV Last administered on 02/12/21at 15:58; Start 02/12/21 at 16:00; Stop 02/12/21 at 16:01; Status DC Info (CONTRAST GIVEN -- Rx MONITORING) 1 each PRN DAILY PRN MC SEE COMMENTS; Start 02/12/21 at 16:00; Stop 02/14/21 at 15:59 Famotidine (Pepcid Vial) 20 mg 1X ONCE IVP Last administered on 02/12/21at 18:22; Start 02/12/21 at 17:45; Stop 02/12/21 at 17:46; Status DC Metoclopramide HCl (Reglan Vial) 10 mg 1X ONCE IVP Last administered on 02/12/21at 18:22; Start 02/12/21 at 17:45; Stop 02/12/21 at 17:46; Status DC Ondansetron HCl (Zofran) 4 mg PRN Q8HRS PRN IVP NAUSEA/VOMITING; Start 02/12/21 at 17:45; Stop 02/12/21 at 20:01; Status DC Ondansetron HCl (Zofran) 4 mg PRN Q4HRS PRN IVP NAUSEA/VOMITING Last administered on 02/13/21at 07:23; Start 02/12/21 at 20:00; Stop 02/13/21 at 19:59 Sodium Chloride 1,000 ml @ 125 mls/hr Q8H IV Last administered on 02/13/21at 05:18; Start 02/12/21 at 20:00 Morphine Sulfate (Morphine Sulfate) 2 mg PRN Q2HR PRN IVP PAIN Last administered on 02/13/21at 07:24; Start 02/12/21 at 20:00 Active Scripts Active Ondansetron Odt (Ondansetron) 4 Mg Tab.rapdis 1 Tab PO PRN Q6-8HRS Miralax (Polyethylene Glycol 3350) 119 Gm Powder 17 Gm PO DAILY dissolve in water Reported Trulicity (Dulaglutide) 0.75 Mg/0.5 Ml Pen.injctr 0.75 Mg SQ QSU Tresiba (Insulin Degludec) 100 Unit/1 Ml Vial 35 Unit SQ HS Zoloft (Sertraline Hcl) 100 Mg Tablet 1 Tab PO DAILY Zonegran (Zonisamide) 100 Mg Capsule 2 Cap PO BID 30 Days Trokendi Xr (Topiramate) 100 Mg Cap.er.24h 1 Cap PO DAILY 30 Days Gabapentin (Gabapentin) 300 Mg Capsule 300 Mg PO BID Aspirin 81 Mg Tab.chew 81 Mg PO DAILY Humalog (Insulin Lispro) 100 Unit/1 Ml Insuln.pen 8 Unit SQ DAILYWSUP Humalog (Insulin Lispro) 100 Unit/1 Ml Insuln.pen 10 Unit SQ DAILYWBKFT Escitalopram Oxalate 10 Mg Tablet 10 Mg PO DAILY Cetirizine Hcl 10 Mg Tablet 10 Mg PO DAILY Levemir (Insulin Detemir) 100 Unit/1 Ml Vial 60 Unit SQ [id number] Lamotrigine 200 Mg Tablet 100 Mg PO BID Losartan Potassium (Losartan Potassium) 25 Mg Tablet 50 Mg PO DAILY Hydrochlorothiazide Tablet (Hydrochlorothiazide) 12.5 Mg Tablet 12.5 Mg PO DAILY Omeprazole 20 Mg Tablet.dr 40 Mg PO DAILY Metformin Hcl 1,000 Mg Tablet 1,000 Mg PO BIDWMEALS Novofine ([place], Insulin Disposable) 1 Each Dis.needle 1 Each MC Allergies Allergies: Coded Allergies: No Known Drug Allergies (Unverified , 05/18/13) ROS General: No: Chills, Other (fevers ) PSYCHOLOGICAL ROS: No: Anxiety, Depression Eyes: No Blurry vision, No Double vision HEENT: No: Heacaches, Nasal congestion Hematological and Lymphatic: No: Bleeding Problems, Blood Clots Respiratory: No: Cough, Shortness of breath Cardiovascular: No Chest Pain, No Palpitations Gastrointestinal: Yes Other (see hpi) Genitourinary: No Dysuria, No Retention Musculoskeletal: No Joint Pain, No Muscle Pain Neurological: No Impaired Coord/balance, No Numbness/Tingling Skin: No Pruritus, No Rash Physical Exam General: Alert, Oriented X3 HEENT: Atraumatic, PERRLA Lungs: Clear to auscultation, Normal air movement Heart: Regular rate, Normal S1, Normal S2 Abdomen: Soft, Other (mild RUQ TTP) Extremities: No clubbing, No cyanosis Skin: No rashes, No breakdown Neuro: Normal gait, Normal speech Psych/Mental Status: Mental status NL, Mood NL MUSCULOSKELETAL: No deformity, No swelling Vitals VITALS Vital Signs Date Time Temp Pulse Resp B/P (MAP) Pulse Ox O2 Delivery O2 Flow Rate FiO2 02/13/21 07:24 18 98 Room Air 02/13/21 07:00 97.8 55 139/73 (95) 97.8 Labs Labs Laboratory Tests Test 02/12/21 13:54 02/12/21 14:17 02/12/21 16:58 02/12/21 20:38 White Blood Count 8.0 x10^3/uL (4.0-11.0) Red Blood Count 5.63 x10^6/uL (3.50-5.40) Hemoglobin 15.6 g/dL (12.0-15.5) Hematocrit 47.0 % (36.0-47.0) Mean Corpuscular Volume 84 fL (79-100) Mean Corpuscular Hemoglobin 28 pg (25-35) Mean Corpuscular Hemoglobin Concent 33 g/dL (31-37) Red Cell Distribution Width 17.9 % (11.5-14.5) Platelet Count 267 x10^3/uL (140-400) Neutrophils (%) (Auto) 72 % (31-73) Lymphocytes (%) (Auto) 20 % (24-48) Monocytes (%) (Auto) 5 % (0-9) Eosinophils (%) (Auto) 1 % (0-3) Basophils (%) (Auto) 1 % (0-3) Neutrophils # (Auto) 5.7 x10^3/uL (1.8-7.7) Lymphocytes # (Auto) 1.6 x10^3/uL (1.0-4.8) Monocytes # (Auto) 0.4 x10^3/uL (0.0-1.1) Eosinophils # (Auto) 0.1 x10^3/uL (0.0-0.7) Basophils # (Auto) 0.1 x10^3/uL (0.0-0.2) Sodium Level 142 mmol/L (136-145) Potassium Level 3.5 mmol/L (3.5-5.1) Chloride Level 105 mmol/L (98-107) Carbon Dioxide Level 22 mmol/L (21-32) Anion Gap 15 (6-14) Blood Urea Nitrogen 14 mg/dL (7-20) Creatinine 0.8 mg/dL (0.6-1.0) Estimated GFR (Cockcroft-Gault) 73.4 BUN/Creatinine Ratio 18 (6-20) Glucose Level 150 mg/dL (70-99) Calcium Level 9.1 mg/dL (8.5-10.1) Magnesium Level 2.1 mg/dL (1.8-2.4) Total Bilirubin 0.4 mg/dL (0.2-1.0) Aspartate Amino Transf (AST/SGOT) 12 U/L (15-37) Alanine Aminotransferase (ALT/SGPT) 22 U/L (14-59) Alkaline Phosphatase 82 U/L (46-116) Troponin I High Sensitivity 6 ng/L (4-50) 6 ng/L (4-50) FY-Arl-C-Type Natriuretic Peptide 27 pg/mL (0-124) Total Protein 7.4 g/dL (6.4-8.2) Albumin 4.1 g/dL (3.4-5.0) Albumin/Globulin Ratio 1.2 (1.0-1.7) Lipase 34 U/L (73-393) Salicylates Level 1.4 mg/dL (2.8-20.0) Salicylate Last Dose Date Salicylate Last Dose Time Ethyl Alcohol Level < 10 mg/dL (0-10) Urine Collection Type Unknown Urine Color Yellow Urine Clarity Clear Urine pH 5.5 (<5.0-8.0) Urine Specific [place] >=1.030 (1.000-1.030) Urine Protein Negative mg/dL (NEG-TRACE) Urine Glucose (UA) >=1000 mg/dL (NEG) Urine Ketones (Stick) >=80 mg/dL (NEG) Urine Blood Negative (NEG) Urine Nitrite Negative (NEG) Urine Bilirubin Moderate (NEG) Urine Urobilinogen Dipstick 1.0 mg/dL (0.2 mg/dL) Urine Leukocyte Esterase Negative (NEG) Urine RBC 1-2 /HPF (0-2) Urine WBC 1-4 /HPF (0-4) Urine Squamous Epithelial Cells Mod /LPF Urine Bacteria Few /HPF (0-FEW) Urine Yeast Present /HPF Urine Opiates Screen Neg (NEG) Urine Methadone Screen Neg (NEG) Urine Barbiturates Neg (NEG) Urine Phencyclidine Screen Neg (NEG) Urine Amphetamine/Methamphetamine Neg (NEG) Urine Benzodiazepines Screen Neg (NEG) Urine Cocaine Screen Neg (NEG) Urine Cannabinoids Screen Neg (NEG) Urine Ethyl Alcohol Neg (NEG) Lactic Acid Level 1.2 mmol/L (0.4-2.0) Glucose (Fingerstick) 124 mg/dL (70-99) Test 02/13/21 00:20 02/13/21 02:00 02/13/21 07:47 SARS-CoV-2 RNA (KIMI) Negative (Negative) SARS-CoV-2 Antigen (Rapid) Negative (NEGATIVE) Troponin I High Sensitivity 7 ng/L (4-50) Glucose (Fingerstick) 105 mg/dL (70-99) Laboratory Tests Test 02/12/21 13:54 02/12/21 14:17 02/12/21 16:58 02/12/21 20:38 White Blood Count 8.0 x10^3/uL (4.0-11.0) Red Blood Count 5.63 x10^6/uL (3.50-5.40) Hemoglobin 15.6 g/dL (12.0-15.5) Hematocrit 47.0 % (36.0-47.0) Mean Corpuscular Volume 84 fL (79-100) Mean Corpuscular Hemoglobin 28 pg (25-35) Mean Corpuscular Hemoglobin Concent 33 g/dL (31-37) Red Cell Distribution Width 17.9 % (11.5-14.5) Platelet Count 267 x10^3/uL (140-400) Neutrophils (%) (Auto) 72 % (31-73) Lymphocytes (%) (Auto) 20 % (24-48) Monocytes (%) (Auto) 5 % (0-9) Eosinophils (%) (Auto) 1 % (0-3) Basophils (%) (Auto) 1 % (0-3) Neutrophils # (Auto) 5.7 x10^3/uL (1.8-7.7) Lymphocytes # (Auto) 1.6 x10^3/uL (1.0-4.8) Monocytes # (Auto) 0.4 x10^3/uL (0.0-1.1) Eosinophils # (Auto) 0.1 x10^3/uL (0.0-0.7) Basophils # (Auto) 0.1 x10^3/uL (0.0-0.2) Sodium Level 142 mmol/L (136-145) Potassium Level 3.5 mmol/L (3.5-5.1) Chloride Level 105 mmol/L (98-107) Carbon Dioxide Level 22 mmol/L (21-32) Anion Gap 15 (6-14) Blood Urea Nitrogen 14 mg/dL (7-20) Creatinine 0.8 mg/dL (0.6-1.0) Estimated GFR (Cockcroft-Gault) 73.4 BUN/Creatinine Ratio 18 (6-20) Glucose Level 150 mg/dL (70-99) Calcium Level 9.1 mg/dL (8.5-10.1) Magnesium Level 2.1 mg/dL (1.8-2.4) Total Bilirubin 0.4 mg/dL (0.2-1.0) Aspartate Amino Transf (AST/SGOT) 12 U/L (15-37) Alanine Aminotransferase (ALT/SGPT) 22 U/L (14-59) Alkaline Phosphatase 82 U/L (46-116) Troponin I High Sensitivity 6 ng/L (4-50) 6 ng/L (4-50) JI-Vzw-T-Type Natriuretic Peptide 27 pg/mL (0-124) Total Protein 7.4 g/dL (6.4-8.2) Albumin 4.1 g/dL (3.4-5.0) Albumin/Globulin Ratio 1.2 (1.0-1.7) Lipase 34 U/L (73-393) Salicylates Level 1.4 mg/dL (2.8-20.0) Salicylate Last Dose Date Salicylate Last Dose Time Ethyl Alcohol Level < 10 mg/dL (0-10) Urine Collection Type Unknown Urine Color Yellow Urine Clarity Clear Urine pH 5.5 (<5.0-8.0) Urine Specific [place] >=1.030 (1.000-1.030) Urine Protein Negative mg/dL (NEG-TRACE) Urine Glucose (UA) >=1000 mg/dL (NEG) Urine Ketones (Stick) >=80 mg/dL (NEG) Urine Blood Negative (NEG) Urine Nitrite Negative (NEG) Urine Bilirubin Moderate (NEG) Urine Urobilinogen Dipstick 1.0 mg/dL (0.2 mg/dL) Urine Leukocyte Esterase Negative (NEG) Urine RBC 1-2 /HPF (0-2) Urine WBC 1-4 /HPF (0-4) Urine Squamous Epithelial Cells Mod /LPF Urine Bacteria Few /HPF (0-FEW) Urine Yeast Present /HPF Urine Opiates Screen Neg (NEG) Urine Methadone Screen Neg (NEG) Urine Barbiturates Neg (NEG) Urine Phencyclidine Screen Neg (NEG) Urine Amphetamine/Methamphetamine Neg (NEG) Urine Benzodiazepines Screen Neg (NEG) Urine Cocaine Screen Neg (NEG) Urine Cannabinoids Screen Neg (NEG) Urine Ethyl Alcohol Neg (NEG) Lactic Acid Level 1.2 mmol/L (0.4-2.0) Glucose (Fingerstick) 124 mg/dL (70-99) Test 02/13/21 00:20 02/13/21 02:00 02/13/21 07:47 SARS-CoV-2 RNA (KIMI) Negative (Negative) SARS-CoV-2 Antigen (Rapid) Negative (NEGATIVE) Troponin I High Sensitivity 7 ng/L (4-50) Glucose (Fingerstick) 105 mg/dL (70-99) Assessment/Plan Assessment/Plan symptomatic cholelithiasis will review with Dr Kelly for timing of eliseo REYMUNDO KELLY MD 02/13/21 1527: CONSULT Assessment/Plan Assessment/Plan Pt seen and examined. Agree with Ms. Martini's note Plan laparoscopic cholecystectomy tomorrow R/R/B/A d/w pt. Thanks for consult! LOU MARTINI APRN Feb 13, 2021 12:05 REYMUNDO KELLY MD Feb 13, 2021 15:27
[2021-02-13 15:00] VITALS: BP 141/71
--- NOTE | 2021-02-13 16:50 | HP ---
DATE OF SERVICE: 02/13/2021 ADMIT DATE: 02/12/2021 LOCATION: She is in room 517. SUBJECTIVE: This is a 60-year-old female who presented to the Emergency Room with intractable vomiting and abdominal pain on the day of admission. She is having intermittent right upper quadrant pain over the last week or so, but then has become more persistent with vomiting, and unable to keep anything down. She is unable to keep her seizure medicines down, which she takes for epilepsy. She has been seen in [facility] Emergency Room some 2-1/2 weeks ago, and refused to be admitted at that point in time because of wanting to come to [place]. PAST MEDICAL HISTORY: Remarkable for constipation, diabetes, history of seizures. PAST SURGICAL HISTORY: Right meniscus repair in the knee and right cataract repair. MEDICATIONS: Brought with the patient, listed on the computer, have been addressed. ALLERGIES: She has no known drug allergies. SOCIAL HISTORY: She is a lifetime nonsmoker, nondrinker, does not use drugs. FAMILY HISTORY: Noncontributory. REVIEW OF SYSTEMS: As mentioned above. PHYSICAL EXAMINATION: GENERAL: She is a well-developed, well-nourished female who appears ill. VITAL SIGNS: Stable. She is afebrile. HEAD, EYES, EARS, NOSE AND THROAT: Remarkable for some mild dryness of the mucous membranes. NECK: Supple, without adenopathy or thyromegaly. CHEST: Clear to auscultation and percussion. HEART: Regular rate and rhythm without S3, S4 or murmur. ABDOMEN: Tender right upper quadrant with positive [place] sign. EXTREMITIES: Without cyanosis, clubbing, edema. NEUROLOGIC: She is intact. LABORATORY DATA: Initial lab work is negative for COVID. Toxicology screen is negative. Urine is unremarkable. CMP is remarkable for glucose of 150 and white count is normal at 8000. DIAGNOSTIC DATA: Imaging of her abdomen shows cholelithiasis on ultrasound and CT. ASSESSMENT: 1. Symptomatic cholelithiasis. 2. Diabetes. 3. Seizures. 4. Intractable vomiting. 5. Ketonuria. PLAN: Admission, IV hydration, antiemetics. Continue home meds. Surgery consult and we will expect that she will need her gallbladder removed. DANICA DR: Teofilo TID: [id number]
[2021-02-13 19:00] VITALS: BP 120/54
[2021-02-13 23:18] VITALS: BP 120/58
[2021-02-14 03:24] VITALS: BP 109/61
[2021-02-14] MEDS: IV NORMAL SALINE 1000ML BAG 1,000 ML IV SCH ×3 (04:00→20:00)
[2021-02-14] MEDS ORDERED: IV RINGERS,LACTATED 1000ML 1,000 ML IV SCH (06:00)
[2021-02-14] MEDS ORDERED: HYDROmorphone 2 MG/ML VIAL IVP PRN (06:00)
[2021-02-14] MEDS ORDERED: fentaNYL PF VIAL 100 MCG/2 ML VIAL IVP PRN (06:00)
[2021-02-14 07:00] VITALS: BP 116/55
--- NOTE | 2021-02-14 10:23 | NUR ---
SW following. Discussed with RN, pt from home with family, room air, NPO, COVID-19 negative. Pt having lap eliseo this morning. RN advised no SW needs at this time. SW will continue to follow.
[2021-02-14 11:00] VITALS: BP 106/55
[2021-02-14] MEDS ORDERED: fentaNYL PF VIAL 100 MCG/2 ML VIAL ONE ×3 (11:15→14:20)
[2021-02-14] MEDS ORDERED: PROPOFOL 10 MG/ML (20ML) VIAL. IV ONE ×2 (11:15→12:35)
[2021-02-14] MEDS ORDERED: LIDOCAINE 2% PF 5 ML VIAL. ONE ×2 (11:15→12:35)
[2021-02-14] MEDS ORDERED: ROCURONIUM 50 MG/5 ML VIAL. ONE ×3 (11:17→13:47)
[2021-02-14] MEDS ORDERED: INSULIN LISPRO 100 UNIT/ML 3ML VIAL for OP,RR ONLY. SQ PRN (11:45)
[2021-02-14] MEDS ORDERED: BUPIVACAINE-EPI 0.5% 30 ML VIAL KIT. ONE ×2 (12:32→12:55)
[2021-02-14] MEDS ORDERED: SURGICEL HEMOSTAT 4X8 EACH. ONE (12:33)
[2021-02-14] MEDS ORDERED: BISACODYL 10 MG SUPP.RECT. ONE (12:33)
[2021-02-14] MEDS ORDERED: IOHEXOL 300 MG/ML 50 ML VIAL. ONE (12:33)
[2021-02-14] MEDS ORDERED: DEXAMETHASONE SOD PHOS 4 MG/ML VIAL ONE (12:35)
[2021-02-14] MEDS ORDERED: SEVOFLURANE 31 TO 60 MINUTES. IH ONE (12:35)
[2021-02-14] MEDS ORDERED: MIDAZOLAM HCL/PF 2 MG/2 ML VIAL. ONE (12:35)
[2021-02-14] MEDS ORDERED: ONDANSETRON PF 4 MG/2 ML VIAL. ONE (12:35)
[2021-02-14] MEDS ORDERED: GLYCOPYRROLATE 1 MG/5 ML VIAL. ONE (12:36)
[2021-02-14] MEDS ORDERED: NEOSTIGMINE METHYLSULFATE 5 MG/5 ML SYRINGE. ONE (12:36)
--- NOTE | 2021-02-14 12:41 | PDOC ---
SURGICAL PROGRESS NOTE DATE: 02/14/21 TIME: 12:39 Subjective Pre-Op Note 60 yo F with symptomatic cholelithiasis TO OR for laparoscopic versus open cholecystectomy with cholangiogram. R/R/B/A d/w pt and pt's supportive family. Risks, including, but not limited to: bleeding, infection, damage to surrounding structures, risk of anesthesia, risk of open. They appear to understand, their questions are answered and they elect to proceed. Vital Signs Vital Signs Date Time Temp Pulse Resp B/P (MAP) Pulse Ox O2 Delivery O2 Flow Rate FiO2 02/14/21 11:58 61 22 101/58 99 Room Air 02/14/21 11:30 97.3 97.3 I&O Intake and Output 02/14/21 07:00 Intake Total 3774 ml Balance 3774 ml Intake Oral 0 ml Blood Product IV Normal Saline Flush 3774 ml # Voids 4 Labs Laboratory Tests Test 02/12/21 13:54 02/12/21 14:17 02/12/21 16:58 02/12/21 20:38 White Blood Count 8.0 x10^3/uL (4.0-11.0) Red Blood Count 5.63 x10^6/uL (3.50-5.40) Hemoglobin 15.6 g/dL (12.0-15.5) Hematocrit 47.0 % (36.0-47.0) Mean Corpuscular Volume 84 fL (79-100) Mean Corpuscular Hemoglobin 28 pg (25-35) Mean Corpuscular Hemoglobin Concent 33 g/dL (31-37) Red Cell Distribution Width 17.9 % (11.5-14.5) Platelet Count 267 x10^3/uL (140-400) Neutrophils (%) (Auto) 72 % (31-73) Lymphocytes (%) (Auto) 20 % (24-48) Monocytes (%) (Auto) 5 % (0-9) Eosinophils (%) (Auto) 1 % (0-3) Basophils (%) (Auto) 1 % (0-3) Neutrophils # (Auto) 5.7 x10^3/uL (1.8-7.7) Lymphocytes # (Auto) 1.6 x10^3/uL (1.0-4.8) Monocytes # (Auto) 0.4 x10^3/uL (0.0-1.1) Eosinophils # (Auto) 0.1 x10^3/uL (0.0-0.7) Basophils # (Auto) 0.1 x10^3/uL (0.0-0.2) Sodium Level 142 mmol/L (136-145) Potassium Level 3.5 mmol/L (3.5-5.1) Chloride Level 105 mmol/L (98-107) Carbon Dioxide Level 22 mmol/L (21-32) Anion Gap 15 (6-14) Blood Urea Nitrogen 14 mg/dL (7-20) Creatinine 0.8 mg/dL (0.6-1.0) Estimated GFR (Cockcroft-Gault) 73.4 BUN/Creatinine Ratio 18 (6-20) Glucose Level 150 mg/dL (70-99) Calcium Level 9.1 mg/dL (8.5-10.1) Magnesium Level 2.1 mg/dL (1.8-2.4) Total Bilirubin 0.4 mg/dL (0.2-1.0) Aspartate Amino Transf (AST/SGOT) 12 U/L (15-37) Alanine Aminotransferase (ALT/SGPT) 22 U/L (14-59) Alkaline Phosphatase 82 U/L (46-116) Troponin I High Sensitivity 6 ng/L (4-50) 6 ng/L (4-50) VX-Asp-X-Type Natriuretic Peptide 27 pg/mL (0-124) Total Protein 7.4 g/dL (6.4-8.2) Albumin 4.1 g/dL (3.4-5.0) Albumin/Globulin Ratio 1.2 (1.0-1.7) Lipase 34 U/L (73-393) Salicylates Level 1.4 mg/dL (2.8-20.0) Salicylate Last Dose Date Salicylate Last Dose Time Ethyl Alcohol Level < 10 mg/dL (0-10) Urine Collection Type Unknown Urine Color Yellow Urine Clarity Clear Urine pH 5.5 (<5.0-8.0) Urine Specific [place] >=1.030 (1.000-1.030) Urine Protein Negative mg/dL (NEG-TRACE) Urine Glucose (UA) >=1000 mg/dL (NEG) Urine Ketones (Stick) >=80 mg/dL (NEG) Urine Blood Negative (NEG) Urine Nitrite Negative (NEG) Urine Bilirubin Moderate (NEG) Urine Urobilinogen Dipstick 1.0 mg/dL (0.2 mg/dL) Urine Leukocyte Esterase Negative (NEG) Urine RBC 1-2 /HPF (0-2) Urine WBC 1-4 /HPF (0-4) Urine Squamous Epithelial Cells Mod /LPF Urine Bacteria Few /HPF (0-FEW) Urine Yeast Present /HPF Urine Opiates Screen Neg (NEG) Urine Methadone Screen Neg (NEG) Urine Barbiturates Neg (NEG) Urine Phencyclidine Screen Neg (NEG) Urine Amphetamine/Methamphetamine Neg (NEG) Urine Benzodiazepines Screen Neg (NEG) Urine Cocaine Screen Neg (NEG) Urine Cannabinoids Screen Neg (NEG) Urine Ethyl Alcohol Neg (NEG) Lactic Acid Level 1.2 mmol/L (0.4-2.0) Glucose (Fingerstick) 124 mg/dL (70-99) Test 02/13/21 00:20 02/13/21 02:00 02/13/21 07:47 02/13/21 12:11 SARS-CoV-2 RNA (KIMI) Negative (Negative) SARS-CoV-2 Antigen (Rapid) Negative (NEGATIVE) Troponin I High Sensitivity 7 ng/L (4-50) Glucose (Fingerstick) 105 mg/dL (70-99) 93 mg/dL (70-99) Test 02/13/21 15:23 02/13/21 17:05 02/13/21 19:28 02/13/21 21:50 Glucose (Fingerstick) 85 mg/dL (70-99) 90 mg/dL (70-99) 82 mg/dL (70-99) 95 mg/dL (70-99) Test 02/14/21 07:32 02/14/21 11:41 Glucose (Fingerstick) 102 mg/dL (70-99) 82 mg/dL (70-99) Laboratory Tests Test 02/13/21 15:23 02/13/21 17:05 02/13/21 19:28 02/13/21 21:50 Glucose (Fingerstick) 85 mg/dL (70-99) 90 mg/dL (70-99) 82 mg/dL (70-99) 95 mg/dL (70-99) Test 02/14/21 07:32 02/14/21 11:41 Glucose (Fingerstick) 102 mg/dL (70-99) 82 mg/dL (70-99) Problem List Problems Medical Problems: (1) Intractable nausea and vomiting Status: Acute (2) Ketonuria Status: Acute Justicifation of Admission Dx: Justifications for Admission: Justification of Admission Dx: N/A REYMUNDO BLANDON MD Feb 14, 2021 12:41
[2021-02-14] MEDS ORDERED: HEPARIN 1,000 UNIT in IV NORMAL SALINE 1,000 ML for SURG PERIOP IRR ONE (13:00)
[2021-02-14] MEDS ORDERED: ePHEDrine PF IN SALINE 50 MG/10 ML SYRINGE. IV ONE (13:39)
--- NOTE | 2021-02-14 14:10 | RAD ---
EXAM: Intraoperative cholangiogram. HISTORY: Cholecystectomy. Pain. COMPARISON: CT dated 02/12/2021. FINDINGS: 2 fluoroscopic images were obtained during an intraoperative cholangiogram. The total fluor oscopy time is 0.17 minutes. The images demonstrate contrast opacification of a dilated downstream bi liary tree. There is contrast within the downstream pancreatic duct and proximal small bowel. No jg ined stone is seen. IMPRESSION: Intraoperative cholangiogram without evidence of a retained stone. Electronically signed by: Briana Kincaid MD (02/14/2021 2:07 PM) [id number]
[2021-02-14] MEDS ORDERED: NALOXONE 0.4 MG/ML VIAL. IV PRN (14:15)
[2021-02-14] MEDS ORDERED: ONDANSETRON PF 4 MG/2 ML VIAL. IVP PRN (14:15)
[2021-02-14] MEDS ORDERED: IV NORMAL SALINE 1000ML BAG 1,000 ML IV SCH (14:15)
[2021-02-14] MEDS ORDERED: 0.9 % SODIUM CHLORIDE 10 ML DISP.SYRIN. IV PRN (14:15)
[2021-02-14] MEDS ORDERED: DEXTROSE 50% 25 GM / 50ML DISP.SYRIN. IV PRN (14:15)
[2021-02-14] MEDS ORDERED: HYDROcodone/APAP 5/325MG 1 TAB TABLET PO PRN (14:15)
[2021-02-14] MEDS ORDERED: PROCHLORPERAZINE 10 MG/2 ML VIAL. ONE (14:20)
--- NOTE | 2021-02-14 14:25 | PDOC4 ---
OPERATIVE NOTE Date: Date: Feb 14, 2021 Pre-Op Diagnosis: Symptomatic cholelithiasis Post-Op Diagnosis: same Procedure Performed: laparoscopic cholecystectomy with cholangiogram Surgeon: Bishop Blandon Anesthesia Type: GETA plus local Blood Loss: 50 Specimans Obtained: gallbladder Findings: indurated gallbladder, multiple stones, no adhesions, normal cholangiogram Complications: none Operative Note: After obtaining informed consent, patient was taken to OR, induced under GETA and prepped in the usual fashion. 5 mm ports placed umbilical and RUQ, 12 port placed epigastric, all under laparoscopic guidance. Abdominal cavity was explored and noted as above. Gallbladder was grasped and taken off fossa in dome down fashion using cautery. Cystic artery ligated with clips. Cholangiogram was obtained via cystic duct (only remaining duct) and was normal. Cystic duct ligated with clips and hemlok. Gallbladder was placed in bag, delivered and sent to pathology. Copious irrigation. No evidence of bleeding or other pathology. Ports removed without bleeding. Fascia repaired with 0 vicryl. Skin repaired with 4 0 monocryl. Dressing placed. Patient tolerated procedure well and sent to PACU in stable condition. All counts correct. Wound class is 2. REYMUNDO BLANDON MD Feb 14, 2021 14:25
[2021-02-14] MEDS: PROCHLORPERAZINE 10 MG/2 ML VIAL. IVP PRN ×2 (14:27→14:36)
[2021-02-14] MEDS: fentaNYL PF VIAL 100 MCG/2 ML VIAL IVP PRN ×2 (14:27→14:36)
[2021-02-14] MEDS ORDERED: MORPHINE SULFATE 2 MG/ML INJ. ONE (14:51)
[2021-02-14] MEDS: MORPHINE SULFATE 2 MG/ML INJ. IVP PRN ×5 (14:54→22:17)
[2021-02-14] MEDS: IV RINGERS,LACTATED 1000ML 1,000 ML IV SCH (14:56)
[2021-02-14 15:00] VITALS: BP 95/47
[2021-02-14 19:00] VITALS: BP 109/58
[2021-02-14 23:00] VITALS: BP 98/48
[2021-02-15] MEDS: IV RINGERS,LACTATED 1000ML 1,000 ML IV SCH ×2 (00:15→10:15)
[2021-02-15] MEDS: IV NORMAL SALINE 1000ML BAG 1,000 ML IV SCH ×2 (01:00→12:00)
[2021-02-15 03:00] VITALS: BP 92/53
--- NOTE | 2021-02-15 05:45 | PN ---
DATE: 02/14/2021 LOCATION: She is in room 517. SUBJECTIVE: This 60-year-old female remains hospitalized with symptomatic cholelithiasis with intractable vomiting and abdominal pain. She is scheduled for surgery today. OBJECTIVE: VITAL SIGNS: Stable. She is afebrile. GENERAL: She is awake and alert, ready to get this done and get on the other side and be able to eat again. CHEST: Clear. HEART: Regular. ABDOMEN: Ongoing abdominal tenderness. ASSESSMENT: Symptomatic cholelithiasis as noted as outlined above. PLAN: Cholecystectomy today with hopefully improvement, ongoing IV hydration in the interim. CLARIBEL/YI/CARMENZA DR: Teofilo TID: [id number]
[2021-02-15 07:00] VITALS: BP 145/61
[2021-02-15] MEDS: MORPHINE SULFATE 2 MG/ML INJ. IVP PRN (07:03)
--- NOTE | 2021-02-15 10:44 | NUR ---
SW following. Discussed with RN, discharge order for home with self care. RN advised no SW needs.
[2021-02-15 11:00] VITALS: BP 133/65
--- NOTE | 2021-02-15 13:18 | PDOC ---
SURGICAL PROGRESS NOTE DATE: 02/15/21 TIME: 13:17 Subjective Pt with c/o incisional pain, but otherwise doing well, sarahi some reg diet Vital Signs Vital Signs Date Time Temp Pulse Resp B/P (MAP) Pulse Ox O2 Delivery O2 Flow Rate FiO2 02/15/21 08:01 98 Room Air 02/15/21 07:03 18 02/15/21 07:00 98.7 70 145/61 (89) 98.7 02/14/21 14:54 6.0 I&O Intake and Output 02/15/21 07:00 Intake Total 3550 ml Output Total 850 ml Balance 2700 ml Intake Oral 0 ml IV Total 2550 ml Blood Product IV Normal Saline Flush 1000 ml Output Urine Total 800 ml Estimated Blood Loss 50 ml # Voids 1 General: Alert, No acute distress Abdomen: Soft, Other (dressing intact) Labs Laboratory Tests Test 02/13/21 15:23 02/13/21 17:05 02/13/21 19:28 02/13/21 21:50 Glucose (Fingerstick) 85 mg/dL (70-99) 90 mg/dL (70-99) 82 mg/dL (70-99) 95 mg/dL (70-99) Test 02/14/21 07:32 02/14/21 11:41 02/14/21 14:38 02/14/21 18:12 Glucose (Fingerstick) 102 mg/dL (70-99) 82 mg/dL (70-99) 124 mg/dL (70-99) 134 mg/dL (70-99) Test 02/14/21 20:01 02/15/21 07:50 Glucose (Fingerstick) 120 mg/dL (70-99) 90 mg/dL (70-99) Laboratory Tests Test 02/14/21 14:38 02/14/21 18:12 02/14/21 20:01 02/15/21 07:50 Glucose (Fingerstick) 124 mg/dL (70-99) 134 mg/dL (70-99) 120 mg/dL (70-99) 90 mg/dL (70-99) Problem List Problems Medical Problems: (1) Intractable nausea and vomiting Status: Acute (2) Ketonuria Status: Acute Assessment/Plan s/p lap eliseo doing well OK to d/c home f/u in two weeks Justicifation of Admission Dx: Justifications for Admission: Justification of Admission Dx: N/A REYMUNDO BLANDON MD Feb 15, 2021 13:18
--- NOTE | 2021-02-15 15:18 | NUR ---
Discharge Note: NICK VEGA Discharge instructions and discharge home medications reviewed with Patient and a copy given. All questions have been answered and understanding verbalized. The following instructions and handouts were given: follow up instructions, medication education Discontinued lines and drains: 20 guage left AC, tip intact. patient tolerated well. Patient discharged to home with self care via family.
--- NOTE | 2021-02-15 16:23 | DS ---
DATE OF DISCHARGE: 02/15/2021 PRIMARY DIAGNOSIS: Symptomatic cholelithiasis. ADDITIONAL DIAGNOSES: Diabetes, history of seizures, intractable vomiting prior to admission and ketonuria on admission. CHIEF COMPLAINT AND HISTORY OF PRESENT ILLNESS: This is a 60-year-old female who presented to the Emergency Room with intractable vomiting and abdominal pain on day of admission. She is having intermittent right upper quadrant pain for the last week or so, but then had become unable to hold things down with persistent vomiting. She was vomiting up her seizure medications, which she takes for epilepsy. She was admitted for the same. SUMMARY OF STAY: The patient was admitted. She was started on IV hydration. She had a CT abdomen and pelvis as well as an ultrasound that showed cholelithiasis. Surgery consult and felt this was the source and she underwent laparoscopic cholecystectomy on the . On seeing her on the , she is having post-surgical pain, but told preoperative pain was gone. She was taking p.o. felt she could be dismissed and this was accomplished. DISPOSITION: The patient is discharged to home. REGULAR DIET: As tolerated. ACTIVITY: As tolerated. FOLLOWUP: Office of Dr. Jim in 1-2 weeks. DISCHARGE MEDICATIONS: Listed on the med rec and have been addressed. CLARIBEL/EDVIN DR: Teofilo TID: [id number] CC: KALANI JIM MD
== END 2021-02-15 14:42 | disposition home or self-care (01) | DRG 419 ==
LOC: ER 12:44 → 5 NORTH 17:33
PROVIDERS: ADMIT Family Medicine; ATTEND Family Medicine
PROC: 0FT44ZZ Resection of Gallbladder, Percutaneous Endoscopic Approach (ICD-10-PCS; principal; 2021-02-14 12:00)
DX: K80.10 Calculus of gallbladder with chronic cholecystitis without obstruction (principal); D25.9 Leiomyoma of uterus, unspecified; E11.40 Type 2 diabetes mellitus with diabetic neuropathy, unspecified; G40.909 Epilepsy, unspecified, not intractable, without status epilepticus; I10 Essential (primary) hypertension; Z85.72 Personal history of non-Hodgkin lymphomas; F32.A Depression, unspecified; F41.9 Anxiety disorder, unspecified; G43.909 Migraine, unspecified, not intractable, without status migrainosus; K21.9 Gastro-esophageal reflux disease without esophagitis; M19.90 Unspecified osteoarthritis, unspecified site; Z20.822 Contact with and (suspected) exposure to COVID-19
CPT/HCPCS: 36415; 71045; 74177; 74300; 76705; 80053; 80307; 80329; 81001; 82962; 83605; 83690; 83735; 83880; 84484; 85025; 87426; 93005; 96361; 96374; 96375; A4213; A4314; A4930; A6219; C1887; G0480; J0690; J0780; J1100; J2250; J2270; J2405; J2704; J2710; J2765; J3010; J3490; J7030; J7120; Q9967; U0003; U0005; 99285-25; G0378

== ENCOUNTER 2021-02-27 23:00 | Observation (INO) | payer BC ==
[~2021-02-27] VITALS: Ht 157.5 cm; Wt 82.9 kg
[~2021-02-27 23:00] MED LIST changes: +DULA0.75 SQ; +GABA300C18 PO; +INSU100V37 SQ; +SERT100T PO; +TOPI100C6 PO; +ZONI100C33 PO
[2021-02-27 23:58] LABS: BASO # 0.1 x10^3/uL (0.0-0.2); BASO % 1 % (0-3); EOS # 0.2 x10^3/uL (0.0-0.7); EOS % 2 % (0-3); HEMATOCRIT 44.4 % (36.0-47.0); HEMOGLOBIN 14.3 g/dL (12.0-15.5); LYMPH # 1.9 x10^3/uL (1.0-4.8); LYMPH % 24 % (24-48); MEAN CORPUSCULAR HEMOGLOBIN 27 pg (25-35); MEAN CORPUSCULAR HGB CONC 32 g/dL (31-37); MEAN CORPUSCULAR VOLUME 85 fL (79-100); MONO # 0.5 x10^3/uL (0.0-1.1); MONO % 6 % (0-9); NEUT # 5.2 x10^3/uL (1.8-7.7); NEUT % 66 % (31-73); PLATELET COUNT 274 x10^3/uL (140-400); RED BLOOD COUNT 5.23 x10^6/uL (3.50-5.40); RED CELL DISTRIBUTION WIDTH 18.1 % (11.5-14.5); WHITE BLOOD COUNT 7.9 x10^3/uL (4.0-11.0)
--- NOTE | 2021-02-28 00:01 | PHYS DOC ---
Past Medical History Past Medical History: Constipation, Diabetes-Type II, Seizure Past Surgical History: Other Additional Past Surgical Histo: RT CATARACT, RT MENISCUS REPAIR Smoking Status: Never Smoker Alcohol Use: None Drug Use: None General Adult EDM: Chief Complaint: NAUSEA/VOMITING/DIARRHEA HPI: HPI: Patient is a 60 year old female with history of seizures, DM who presents with ataxia and vomiting. Per witness, patient began experiencing symptoms at 8 PM. She skipped dinner, and then was complaining that she could not walk shortly afterwards. She vomited shortly after that. Complaining of a mild headache that started just before ataxia. She also complains of double vision. Her family member feels that her speech is delayed as compared to normal. Review of Systems: Review of Systems: Please see HPI for pertinent positives and negatives. Heart Score: C/O Chest Pain: No Allergies: Allergies: Allergies Coded Allergies Type Severity Reaction Last Updated Verified No Known Drug Allergies 05/18/13 No Physical Exam: PE: Constitutional: Mild tachypnea, ill-appearing. HENT: Normocephalic, atraumatic, Eyes: PERRLA, EOMI, conjunctiva normal, no discharge. [] Neck: Normal range of motion, no tenderness, supple, no stridor. [] Cardiovascular:Heart rate regular rhythm, no murmur [] Lungs & Thorax: Bilateral breath sounds clear to auscultation [] Abdomen: Bowel sounds normal, soft, no tenderness, no masses, no pulsatile masses. [] Skin: Warm, dry, no erythema, no rash. [] Extremities: No tenderness, no cyanosis, no clubbing, ROM intact, no edema. [] Neurologic: Alert to person, age, month. Keenly responsive Follows simple commands (blinks eyes, close fist), but has difficulty with multistep commands EOMI. Visual juárez intact. Bidirectional nystagmus. Face symmetric. No upper or lower extremity drift Does have ataxia in all 4 extremities No aphasia or dysarthria, but is very slow to initiate speech. No sensory deficits No extinction or neglect Current Patient Data: Labs: Laboratory Tests Test 02/27/21 23:31 Glucose (Fingerstick) 171 mg/dL (70-99) H EKG: EKG: [] Radiology/Procedures: Radiology/Procedures: [] Impression: [facility] [address] [place] [address] IMAGING REPORT Signed PATIENT: NICK VEGA ACCOUNT: [id number] : 1960 LOCATION: ER AGE: 60 SEX: F EXAM STATUS: REG ER ORD. PHYSICIAN: DANIEL BROWN MD REASON: ataxia, diplopia PROCEDURE: CT CODE STROKE HEAD WO INDICATION: Reason: ataxia, diplopia / Spl. Instructions: / History: COMPARISON: January 31, 2021 TECHNIQUE: Axial CT images obtained through the head without intravenous contrast. One or more of the following individualized dose reduction techniques were utilized for this examination: 1. Automated exposure control; 2. Adjustment of the mA and/or kV according to patient size; 3. Use of iterative reconstruction technique. FINDINGS: No intracranial hemorrhage. No significant midline shift. Ventricles and sulci are globally prominent. Scattered foci of low attenuation within the white matter. IMPRESSION: * No acute intracranial hemorrhage. * Scattered regions of low attenuation within the white matter. Non-specific in nature but a common finding and frequently secondary to small vessel ischemic disease. Report called to the emergency department at 12:02 AM Electronically signed by: Floresita Magdaleno MD (02/28/2021 12:05 AM) DESKTOP- [id number] DICTATED and SIGNED BY: FLORESITA MAGDALENO MD DATE: 02/28/21 [id number] [facility] [address] [place] [address] IMAGING REPORT Signed PATIENT: NICK VEGA ACCOUNT: [id number] : 1960 LOCATION: ER AGE: 60 SEX: F EXAM STATUS: REG ER ORD. PHYSICIAN: DANIEL BROWN MD REASON: ataxia, diplopia;OMNI 300, 75ML PROCEDURE: CT ANGIOGRAPHY HEAD AND NECK INDICATION: Reason: ataxia, diplopia;OMNI 300, 75ML / Spl. Instructions: / History: COMPARISON: CT head from earlier same day TECHNIQUE: Axial CT images obtained through the head and neck arterial vasculature with intravenous contrast. 3D images were processed per protocol. Estimates of carotid stenosis based on criteria that correlates with NASCET. One or more of the following individualized dose reduction techniques were utilized for this examination: 1. Automated exposure control; 2. Adjustment of the mA and/or kV according to patient size; 3. Use of iterative reconstruction technique. FINDINGS: Head and Neck Angio: Scattered regions of low density within the white matter. Bilateral vertebral arteries are patent. Bilateral common and internal carotid arteries are patent. Proximal external carotid arteries are patent. Basilar artery is patent. Bilateral proximal MCA, RIKI and STORE STOCKER is patent. There is an apparent cut off within the right posterior cerebral artery approximately 2 cm from origin. More peripheral vessels are not well evaluated on CT angiography secondary to small size. Multifocal plaque throughout the vasculature with some luminal irregularity. There is some filling defects seen at the left sigmoid sinus which is most likely secondary to arachnoid granulation. Degenerative changes the spine with multilevel central canal and neural foraminal stenosis. Internal carotid arteries are small in caliber intracranially. Groundglass opacities at lung apices which could be secondary to atelectasis, edema or small airway inflammation. Dependent airspace opacity left greater than right upper lung which could be from atelectasis. Scattered small lymph nodes in the neck. Mucous retention cyst or polyp left maxillary sinus. IMPRESSION: * Vertebral, internal and common carotid arteries are patent within the neck. * There is an apparent cut off within the right posterior cerebral artery located approximately 2 cm from the origin. The vessel is small in size at this location therefore evaluation is difficult but an area of high-grade stenosis or occlusion at this site may be present given the patient's symptoms. There are some vessels seen peripheral to this site within the right posterior cerebral artery circulation without evidence of complete occlusion of the right STORE STOCKER circulation with occlusion of one of the branch vessels at this site possible given this apparent cut off. MRI could more completely assess. * Proximal middle, anterior cerebral arteries are patent. The vessels are small in caliber more distally therefore not well evaluated and if there is high cli nical concern for stroke MRI could better assess for a more peripheral region of ischemia that would not be well seen on this exam. * Degenerative changes throughout the spine with multilevel central canal and neural foraminal stenosis. FOR INTERNAL CODING PURPOSES Report was called to the emergency department at 12:23 AM RESULT CODE: (C) Electronically signed by: Floresita Magdaleno MD (02/28/2021 12:27 AM) DESKTOP- [id number] DICTATED and SIGNED BY: FLORESITA MAGDALENO MD DATE: 02/28/21 [id number] 0 Course & Med Decision Making: Course & Med Decision Making Pertinent Labs and Imaging studies reviewed. (See chart for details) Patient 60-year-old female with history of DM, seizures who presents with ataxia, vomiting, and complaints of diplopia. On exam has bidirectional nystagmus and ataxia. NIH = 2 for ataxia. glucose 171. Concerned for posterior stroke, hemorrhage, cervical artery dissection. Code stroke activated with CT head and CTA head/neck. 8pm lkw with witness, so may be a borderline tpa candidate pending imaging results, coags, review with neurologist, although by the time appropriate work up has returned she may be out of tpa window. 00:01 Non-con CT head without hemorrhage. Platelets, INR, PTT ok. No Tpa contraindications found. Discussed with Dr. Salazar at 1213AM, given patient is 4 hours and 13 mins from onset and diagnosis is not entirely clear, will hold on TPA. Will plan on admission and order ASA 325mg, awaiting CT angiogram results. 00:15 CTA with concern for occlusion of small segment of right STORE STOCKER. Not LVO, plan as above for aspirin, MRI, echocardiogram, further stroke work up. [id number] Michaela Disclaimer: Michaela Disclaimer: This electronic medical record was generated, in whole or in part, using a voice recognition dictation system. NIHSS Stroke Scale NIH Stroke Scale: NIH Stroke Scale Response (Comments) Value Level of Consciousness: 0 Alert/Responsive 0 LOC Questions: 0 Answers both correctly 0 LOC Commands: 0 Performs both tasks 0 Best Gaze: 0 Normal 0 Visual: 0 No visual loss 0 Facial Palsy: 0 Normal, symmetrical 0 Motor - Left Arm 0 No drift 0 Motor - Right Arm 0 No drift 0 Motor - Left Leg 0 No drift 0 Motor: Right Leg 0 No drift 0 Limb Ataxia: 2 Two limbs 2 Sensory: 0 No loss 0 Best Language: 0 Normal 0 Dysathria: 0 Normal 0 Extinction and Inattention: 0 Normal 0 Total 2 Departure Departure Impression: Primary Impression: Ataxia Disposition: ADMITTED INPATIENT Admitting Physician: Kalani Magdaleno Condition: STABLE Referrals: KALANI MAGDALENO MD (PCP) DANIEL BROWN MD Feb 28, 2021 00:01
[2021-02-28 00:06] LABS: PROTHROMBIN TIME PATIENT 13.1 SEC (11.7-14.0)
--- NOTE | 2021-02-28 00:07 | RAD ---
INDICATION: Reason: ataxia, diplopia / Spl. Instructions: / History: COMPARISON: January 31, 2021 TECHNIQUE: Axial CT images obtained through the head without intravenous contrast. One or more of the following individualized dose reduction techniques were utilized for this examinat ion: 1. Automated exposure control; 2. Adjustment of the mA and/or kV according to patient size; 3 . Use of iterative reconstruction technique. FINDINGS: No intracranial hemorrhage. No significant midline shift. Ventricles and sulci are globally prominent. Scattered foci of low attenuation within the white matter. IMPRESSION: * No acute intracranial hemorrhage. * Scattered regions of low attenuation within the white matter. Non-specific in nature but a common finding and frequently secondary to small vessel ischemic disease. Report called to the emergency de partment at 12:02 AM Electronically signed by: Ashwin Jim MD (02/28/2021 12:05 AM) DESKTOP-[id number]
--- NOTE | 2021-02-28 00:29 | RAD ---
INDICATION: Reason: ataxia, diplopia;OMNI 300, 75ML / Spl. Instructions: / History: COMPARISON: CT head from earlier same day TECHNIQUE: Axial CT images obtained through the head and neck arterial vasculature with intravenous contrast. 3 D images were processed per protocol. Estimates of carotid stenosis based on criteria that correlates with NASCET. One or more of the following individualized dose reduction techniques were utilized for this examinat ion: 1. Automated exposure control; 2. Adjustment of the mA and/or kV according to patient size; 3 . Use of iterative reconstruction technique. FINDINGS: Head and Neck Angio: Scattered regions of low density within the white matter. Bilateral vertebral arteries are patent. Bilateral common and internal carotid arteries are patent. Proximal external carotid arteries are patent. Basilar artery is patent. Bilateral proximal MCA, RIKI and CANT GANG SAWYER is patent. There is an apparent cut off within the right posterio r cerebral artery approximately 2 cm from origin. More peripheral vessels are not well evaluated on CT angiography secondary to small size. Multifocal plaque throughout the vasculature with some luminal irregularity. There is some filling defects seen at the left sigmoid sinus which is most likely secondary to arachn oid granulation. Degenerative changes the spine with multilevel central canal and neural foraminal stenosis. Internal carotid arteries are small in caliber intracranially. Groundglass opacities at lung apices which could be secondary to atelectasis, edema or small airway i nflammation. Dependent airspace opacity left greater than right upper lung which could be from atelec tasis. Scattered small lymph nodes in the neck. Mucous retention cyst or polyp left maxillary sinus. IMPRESSION: * Vertebral, internal and common carotid arteries are patent within the neck. * There is an apparent cut off within the right posterior cerebral artery located approximately 2 cm from the origin. The vessel is small in size at this location therefore evaluation is difficult but an area of high-grade stenosis or occlusion at this site may be present given the patient's symptoms. There are some vessels seen peripheral to this site within the right posterior cerebral artery circu lation without evidence of complete occlusion of the right CANT GANG SAWYER circulation with occlusion of one of t he branch vessels at this site possible given this apparent cut off. MRI could more completely assess . * Proximal middle, anterior cerebral arteries are patent. The vessels are small in caliber more dist ally therefore not well evaluated and if there is high clinical concern for stroke MRI could better a ssess for a more peripheral region of ischemia that would not be well seen on this exam. * Degenerative changes throughout the spine with multilevel central canal and neural foraminal steno sis. FOR INTERNAL CODING PURPOSES Report was called to the emergency department at 12:23 AM RESULT CODE: (C) Electronically signed by: Ashwin Jim MD (02/28/2021 12:27 AM) DESKTOP-[id number]
[2021-02-28 00:47] LABS: CALCIUM 8.5 mg/dL (8.5-10.1); GFR 56.7; POTASSIUM 3.1 mmol/L (3.5-5.1)
[2021-02-28 00:56] LABS: ALBUMIN 3.9 g/dL (3.4-5.0); ALBUMIN/GLOBULIN RATIO 1.5 (1.0-1.7); TOTAL BILIRUBIN 0.4 mg/dL (0.2-1.0); TOTAL PROTEIN 6.5 g/dL (6.4-8.2)
[2021-02-28] MEDS ORDERED: IOHEXOL 300 MG/ML 100ML VIAL. IV ONE (01:45)
[2021-02-28] MEDS ORDERED: CONTRAST GIVEN. MC PRN (02:00)
[2021-02-28] MEDS ORDERED: ASPIRIN 325 MG TABLET PO ONE (02:00)
--- NOTE | 2021-02-28 04:36 | EKG ---
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
[2021-02-28] MEDS ORDERED: INSU100V37 SQ (06:13)
[2021-02-28 07:00] VITALS: BP 110/67
[2021-02-28] MEDS ORDERED: ONDANSETRON ODT 4 MG TAB.RAPDIS. PO PRN (08:15)
[2021-02-28] MEDS ORDERED: DEXTROSE 50% 25 GM / 50ML DISP.SYRIN. IV PRN (08:15)
--- NOTE | 2021-02-28 08:41 | HP ---
DATE OF SERVICE: 02/28/2021 ADMIT DATE: 02/28/2021 CHIEF COMPLAINT: Dizziness and nausea. HISTORY OF PRESENT ILLNESS: A 49-year-old white female, who is insulin-dependent diabetic with a history of seizure disorder, on multiple meds came in with abrupt onset of nausea and nonspecific dizziness on the day of admission. She denied any visual disturbance, chest pain, trauma, medications, or any seizure activity. ER evaluation showed evidence of nystagmus horizontally and some ataxia in mainly upper extremities and CT scan of the head was clear, but CTA showed evidence of what appeared to be occlusion of the right posterior cerebral artery 2 or 3 cm off its origin from basilar artery. She is feeling a little less dizzy at this time. She does not take aspirin normally at home. She sees Dr. 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 PAST HISTORY: Meds listed per the chart, multiple in nature. No known allergies. She takes blood pressure meds as well and her blood pressure was somewhat low in the ER. Potassium level was low a little bit as well. She just had a cholecystectomy about 2 or 3 weeks ago and is recovering uneventfully from that. SOCIAL HISTORY: Nonsmoker, employed, single, nondrinker, physically active. FAMILY HISTORY: Unremarkable. REVIEW OF SYSTEMS: Unremarkable. PHYSICAL EXAMINATION: ENT: Difficult to see nystagmus in the dim lightening of her ER room. No obvious pupillary changes or other findings. NECK: No carotid bruits, nodes, or masses. LUNGS: Clear. CARDIOVASCULAR: Regular rate. No irregular beat or tachycardia. ABDOMEN: Benign and soft. Healing incisions are present and unremarkable. EXTREMITIES: Good pedal and radial pulses. No joint or skin lesions. NEUROLOGIC: No overt cerebellar dysfunction seen. Again, difficult to assess nystagmus. Gait was not tested. Moves all extremities. Sensory appears to be intact as does his mental status. ASSESSMENT: Ataxia, dizziness, and nystagmus. Certainly could be peripheral but question of a central injury to the right cerebellum from what appeared to be an occlusion of the right posterior cerebellar artery must be considered as well. Risk factors would be diabetes, primarily as she is not a smoker. PLAN: Continue aspirin. Neurologic evaluation. monitoring. Consider MRI with attention to the posterior fossa as well. LIANG/DONN DR: LIANG/shelby TID: [id number]
[2021-02-28] MEDS ORDERED: NON FORMULARY ITEM (Hydrochlorothiazide (Hydrochlorothiazide Tablet) 12.5 MG) PO SCH (09:00)
[2021-02-28] MEDS ORDERED: lamoTRIgine 100 MG TABLET. PO SCH (09:00)
[2021-02-28] MEDS ORDERED: TOPIRAMATE PO SCH (09:00)
[2021-02-28] MEDS ORDERED: ASPIRIN CHEWABLE 81 MG TABLET. PO SCH (09:00)
[2021-02-28] MEDS ORDERED: LOSARTAN POTASSIUM 25 MG TABLET. PO SCH (09:00)
--- NOTE | 2021-02-28 10:20 | PDOC2 ---
NEUROLOGY CONSULT Date of Service DOS: DATE: 02/28/21 TIME: 10:12 Reason for Consult Reason for Consult: Stroke symptoms Referring Physician Referring Physician: Dr. Jim Source Source: Chart review, Patient History of Present Illness History of Present Illness The patient is a 60-year-old right-handed female who started noticing stroke symptoms at 20:00 last night. She had ataxia, vomiting, may be some trouble speaking, blurred vision, trouble with leg coordination. She has never had a stroke before. I follow her in my clinic for generalized epilepsy, diabetic neuropathy, and mixed headache disorder. I last saw her on 02/03. She has not been feeling well for a while. She had vomiting, trouble keeping her medications down, some spots in her right eye after cataract surgery, and then last week she had a cholecystectomy. She is feeling somewhat better today. There is no dysphagia or diplopia. 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 Current Medications Current Medications Current Medications Aspirin (Jerald Aspirin) 325 mg 1X ONCE PO Last administered on 02/28/21at 02:00; Start 02/28/21 at 02:00; Stop 02/28/21 at 02:01; Status DC Iohexol (Omnipaque 300 Mg/ml) 75 ml 1X ONCE IV Last administered on 02/28/21at 01:45; Start 02/28/21 at 01:45; Stop 02/28/21 at 01:46; Status DC Info (CONTRAST GIVEN -- Rx MONITORING) 1 each PRN DAILY PRN MC SEE COMMENTS; Start 02/28/21 at 02:00; Stop 03/02/21 at 01:59 Aspirin (Aspirin Chewable) 81 mg DAILY PO ; Start 02/28/21 at 09:00 Gabapentin (Neurontin) 300 mg BID PO ; Start 02/28/21 at 09:00 Losartan Potassium (Cozaar) 50 mg DAILY PO ; Start 02/28/21 at 09:00; Stop 02/28/21 at 08:07; Status DC Ondansetron HCl (Zofran Odt) 4 mg PRN Q4HRS PRN PO NAUSEA/VOMITING; Start 02/28/21 at 08:15 Polyethylene Glycol (miraLAX PACKET) 17 gm DAILY PO ; Start 02/28/21 at 09:00 Zonisamide (Zonegran) 200 mg BID PO ; Start 02/28/21 at 09:00 Citalopram Hydrobromide (CeleXA) 20 mg DAILY PO ; Start 02/28/21 at 09:00 Non-Formulary Medication (Hydrochlorothiazide (Hydrochlorothiazide Tablet)) 12.5 mg DAILY PO ; Start 02/28/21 at 09:00; Stop 02/28/21 at 08:07; Status DC Insulin Glargine (Lantus Syringe) 35 unit QHS SQ ; Start 02/28/21 at 21:00 Lamotrigine (LaMICtal) 100 mg BID PO ; Start 02/28/21 at 09:00 Metformin HCl (Glucophage) 1,000 mg BIDWMEALS PO ; Start 03/02/21 at 08:00 Pantoprazole Sodium (Protonix) 40 mg DAILYAC PO ; Start 02/28/21 at 09:00 Non-Formulary Medication (Topiramate (Trokendi Xr)) 1 cap DAILY PO ; Start 02/28/21 at 09:00; Status UNV Dextrose (Dextrose 50%-Water Syringe) 12.5 gm PRN Q15MIN PRN IV SEE COMMENTS; Start 02/28/21 at 08:15 Aspirin (Aspirin Chewable) 81 mg DAILYWBKFT PO ; Start 03/01/21 at 08:00 Active Scripts Active Ondansetron Odt (Ondansetron) 4 Mg Tab.rapdis 1 Tab PO PRN Q6-8HRS Miralax (Polyethylene Glycol 3350) 119 Gm Powder 17 Gm PO DAILY dissolve in water Reported Tresiba (Insulin Degludec) 100 Unit/1 Ml Vial 35 Unit SQ HS Trulicity (Dulaglutide) 0.75 Mg/0.5 Ml Pen.injctr 0.75 Mg SQ QSU Zonegran (Zonisamide) 100 Mg Capsule 2 Cap PO BID 30 Days Trokendi Xr (Topiramate) 100 Mg Cap.er.24h 1 Cap PO DAILY 30 Days Gabapentin (Gabapentin) 300 Mg Capsule 300 Mg PO BID Aspirin 81 Mg Tab.chew 81 Mg PO DAILY Escitalopram Oxalate 10 Mg Tablet 10 Mg PO DAILY Cetirizine Hcl 10 Mg Tablet 10 Mg PO DAILY Lamotrigine 200 Mg Tablet 100 Mg PO BID Losartan Potassium (Losartan Potassium) 25 Mg Tablet 50 Mg PO DAILY Hydrochlorothiazide Tablet (Hydrochlorothiazide) 12.5 Mg Tablet 12.5 Mg PO DAILY Omeprazole 20 Mg Tablet.dr 40 Mg PO DAILY Metformin Hcl 1,000 Mg Tablet 1,000 Mg PO BIDWMEALS Allergies Allergies: Coded Allergies: No Known Drug Allergies (Unverified , 05/18/13) ROS Review of System Negative for fever, chills, weight loss, shortness of breath, chest pain, indigestion, hematochezia, melena, and dysuria. Full 14-point review of systems is negative. Physical Exam Physical Examination General: Well-developed, well-nourished, female, in no acute distress HEENT: Normocephalic andatraumatic. Tympanic membranes clear.Temporal arteriespulsatile and nontender. Neck: Supple without bruit, no meningismus Musculoskeletal: Stability:see neurologic. Gait exam:see neurologic. Tone:see neurologic.Strength:see neurologic. Neurological: Mental Status:intact, orientation, memory, attention span/concentration, language, fund of knowledge normal. Cranial Nerves:Pupils equal and reactive to light, extraocular movements areintact, visual juárez are full to c onfrontation. Facial sensation is normal. There is no facial asymmetry. Vestibulo-ocular reflex is intact. Palate elevates and tongue protrudes in midline. All other cranial related problems are negative except as mentioned before.Reflexes:2+ and symmetric with flexor plantar responses. Motor:5/5 strength with normal tone and bulk. Coordination:Finger-nose finger and qpdw-nu-itpn testing are normal. Rapid alternating movements and fine finger movements are intact. Gait:Not tested. Sensory:Stocking-glove loss Vitals VITALS Vital Signs Date Time Temp Pulse Resp B/P (MAP) Pulse Ox O2 Delivery O2 Flow Rate FiO2 02/28/21 06:29 72 104/67 (79) 98 Room Air 02/27/21 23:30 98.1 17 98.1 Labs Labs Laboratory Tests Test 02/27/21 23:31 02/27/21 23:45 02/28/21 00:25 Glucose (Fingerstick) 171 mg/dL (70-99) White Blood Count 7.9 x10^3/uL (4.0-11.0) Red Blood Count 5.23 x10^6/uL (3.50-5.40) Hemoglobin 14.3 g/dL (12.0-15.5) Hematocrit 44.4 % (36.0-47.0) Mean Corpuscular Volume 85 fL (79-100) Mean Corpuscular Hemoglobin 27 pg (25-35) Mean Corpuscular Hemoglobin Concent 32 g/dL (31-37) Red Cell Distribution Width 18.1 % (11.5-14.5) Platelet Count 274 x10^3/uL (140-400) Neutrophils (%) (Auto) 66 % (31-73) Lymphocytes (%) (Auto) 24 % (24-48) Monocytes (%) (Auto) 6 % (0-9) Eosinophils (%) (Auto) 2 % (0-3) Basophils (%) (Auto) 1 % (0-3) Neutrophils # (Auto) 5.2 x10^3/uL (1.8-7.7) Lymphocytes # (Auto) 1.9 x10^3/uL (1.0-4.8) Monocytes # (Auto) 0.5 x10^3/uL (0.0-1.1) Eosinophils # (Auto) 0.2 x10^3/uL (0.0-0.7) Basophils # (Auto) 0.1 x10^3/uL (0.0-0.2) Prothrombin Time 13.1 SEC (11.7-14.0) Prothromb Time International Ratio 1.0 (0.8-1.1) Activated Partial Thromboplast Time 27 SEC (24-38) Sodium Level 139 mmol/L (136-145) Potassium Level 3.1 mmol/L (3.5-5.1) Chloride Level 100 mmol/L (98-107) Carbon Dioxide Level 25 mmol/L (21-32) Anion Gap 14 (6-14) Blood Urea Nitrogen 12 mg/dL (7-20) Creatinine 1.0 mg/dL (0.6-1.0) Estimated GFR (Cockcroft-Gault) 56.7 BUN/Creatinine Ratio 12 (6-20) Glucose Level 140 mg/dL (70-99) Calcium Level 8.5 mg/dL (8.5-10.1) Total Bilirubin 0.4 mg/dL (0.2-1.0) Aspartate Amino Transf (AST/SGOT) 20 U/L (15-37) Alanine Aminotransferase (ALT/SGPT) 25 U/L (14-59) Alkaline Phosphatase 111 U/L (46-116) Troponin I High Sensitivity 6 ng/L (4-50) Total Protein 6.5 g/dL (6.4-8.2) Albumin 3.9 g/dL (3.4-5.0) Albumin/Globulin Ratio 1.5 (1.0-1.7) Laboratory Tests Test 02/27/21 23:31 02/27/21 23:45 02/28/21 00:25 Glucose (Fingerstick) 171 mg/dL (70-99) White Blood Count 7.9 x10^3/uL (4.0-11.0) Red Blood Count 5.23 x10^6/uL (3.50-5.40) Hemoglobin 14.3 g/dL (12.0-15.5) Hematocrit 44.4 % (36.0-47.0) Mean Corpuscular Volume 85 fL (79-100) Mean Corpuscular Hemoglobin 27 pg (25-35) Mean Corpuscular Hemoglobin Concent 32 g/dL (31-37) Red Cell Distribution Width 18.1 % (11.5-14.5) Platelet Count 274 x10^3/uL (140-400) Neutrophils (%) (Auto) 66 % (31-73) Lymphocytes (%) (Auto) 24 % (24-48) Monocytes (%) (Auto) 6 % (0-9) Eosinophils (%) (Auto) 2 % (0-3) Basophils (%) (Auto) 1 % (0-3) Neutrophils # (Auto) 5.2 x10^3/uL (1.8-7.7) Lymphocytes # (Auto) 1.9 x10^3/uL (1.0-4.8) Monocytes # (Auto) 0.5 x10^3/uL (0.0-1.1) Eosinophils # (Auto) 0.2 x10^3/uL (0.0-0.7) Basophils # (Auto) 0.1 x10^3/uL (0.0-0.2) Prothrombin Time 13.1 SEC (11.7-14.0) Prothromb Time International Ratio 1.0 (0.8-1.1) Activated Partial Thromboplast Time 27 SEC (24-38) Sodium Level 139 mmol/L (136-145) Potassium Level 3.1 mmol/L (3.5-5.1) Chloride Level 100 mmol/L (98-107) Carbon Dioxide Level 25 mmol/L (21-32) Anion Gap 14 (6-14) Blood Urea Nitrogen 12 mg/dL (7-20) Creatinine 1.0 mg/dL (0.6-1.0) Estimated GFR (Cockcroft-Gault) 56.7 BUN/Creatinine Ratio 12 (6-20) Glucose Level 140 mg/dL (70-99) Calcium Level 8.5 mg/dL (8.5-10.1) Total Bilirubin 0.4 mg/dL (0.2-1.0) Aspartate Amino Transf (AST/SGOT) 20 U/L (15-37) Alanine Aminotransferase (ALT/SGPT) 25 U/L (14-59) Alkaline Phosphatase 111 U/L (46-116) Troponin I High Sensitivity 6 ng/L (4-50) Total Protein 6.5 g/dL (6.4-8.2) Albumin 3.9 g/dL (3.4-5.0) Albumin/Globulin Ratio 1.5 (1.0-1.7) Images Images CT CODE STROKE HEAD WO INDICATION: Reason: ataxia, diplopia / Spl. Instructions: / History: COMPARISON: January 31, 2021 TECHNIQUE: Axial CT images obtained through the head without intravenous contrast. One or more of the following individualized dose reduction techniques were utilized for this examination: 1. Automated exposure control; 2. Adjustment of the mA and/or kV according to patient size; 3. Use of iterative reconstruction technique. FINDINGS: No intracranial hemorrhage. No significant midline shift. Ventricles and sulci are globally prominent. Scattered foci of low attenuation within the white matter. IMPRESSION: * No acute intracranial hemorrhage. * Scattered regions of low attenuation within the white matter. Non-specific in nature but a common finding and frequently secondary to small vessel ischemic disease. Report called to the emergency department at 12:[address] ANGIOGRAPHY HEAD AND NECK INDICATION: Reason: ataxia, diplopia;OMNI 300, 75ML / Spl. Instructions: / History: COMPARISON: CT head from earlier same day TECHNIQUE: Axial CT images obtained through the head and neck arterial vasculature with intravenous contrast. 3D images were processed per protocol. Estimates of carotid stenosis based on criteria that correlates with NASCET. One or more of the following individualized dose reduction techniques were utilized for this examination: 1. Automated exposure control; 2. Adjustment of the mA and/or kV according to patient size; 3. Use of iterative reconstruction technique. FINDINGS: Head and Neck Angio: Scattered regions of low density within the white matter. Bilateral vertebral arteries are patent. Bilateral common and internal carotid arteries are patent. Proximal external carotid arteries are patent. Basilar artery is patent. Bilateral proximal MCA, RIKI and ON SITE SOIL EVALUATOR is patent. There is an apparent cut off within the right posterior cerebral artery approximately 2 cm from origin. More peripheral vessels are not well evaluated on CT angiography secondary to small size. Multifocal plaque throughout the vasculature with some luminal irregularity. There is some filling defects seen at the left sigmoid sinus which is most likely secondary to arachnoid granulation. Degenerative changes the spine with multilevel central canal and neural foraminal stenosis. Internal carotid arteries are small in caliber intracranially. Groundglass opacities at lung apices which could be secondary to atelectasis, edema or small airway inflammation. Dependent airspace opacity left greater than right upper lung which could be from atelectasis. Scattered small lymph nodes in the neck. Mucous retention cyst or polyp left maxillary sinus. IMPRESSION: * Vertebral, internal and common carotid arteries are patent within the neck. * There is an apparent cut off within the right posterior cerebral artery located approximately 2 cm from the origin. The vessel is small in size at this location therefore evaluation is difficult but an area of high-grade stenosis or occlusion at this site may be present given the patient's symptoms. There are some vessels seen peripheral to this site within the right posterior cerebral artery circulation without evidence of complete occlusion of the right [employer] SITE SOIL EVALUATOR circulation with occlusion of one of the branch vessels at this site possible given this apparent cut off. MRI could more completely assess. * Proximal middle, anterior cerebral arteries are patent. The vessels are small in caliber more distally therefore not well evaluated and if there is high clinical concern for stroke MRI could better assess for a more peripheral region of ischemia that would not be well seen on this exam. * Degenerative changes throughout the spine with multilevel central canal and neural foraminal stenosis. Assessment/Plan Assessment/Plan Impression: Bedside examination more consistent with peripheral vertigo, but she did have some limb ataxia last night. She does have cut off of the right posterior cerebral artery 2 cm from the origin, vessel is small in size and distal vessels are visible so there is no evidence of complete occlusion of the right ON SITE SOIL EVALUATOR circulation Generalized convulsive epilepsy Diabetic neuropathy Recommendations: Brain MRI, further stroke evaluation if it is positive Otherwise supportive care with physical therapy and medication Continue current anticonvulsants, according my chart she is on 200 mg twice daily of lamotrigine, not 100 mg twice daily Discussed with Dr. Jim. Thank you for letting me help with the patient's care. FOREIGN PACHECO MD Feb 28, 2021 10:20
[2021-02-28 10:35] LABS: CHOLESTEROL/HDL RATIO 3.6
[2021-02-28 11:25] VITALS: BP 136/83
[2021-02-28] MEDS: GABAPENTIN 300 MG CAPSULE. PO SCH ×2 (12:10→20:47)
[2021-02-28] MEDS: CITALOPRAM 20 MG TABLET. PO SCH (12:10)
[2021-02-28] MEDS: PANTOPRAZOLE 40 MG TABLET.DR. PO SCH (12:11)
[2021-02-28] MEDS: POLYETHYLENE GLYCOL 3350 17 GM PACKET. PO SCH (12:11)
[2021-02-28] MEDS: lamoTRIgine 100 MG TABLET. PO SCH (12:11)
[2021-02-28] MEDS: ZONISAMIDE 100 MG CAPSULE. PO SCH ×2 (12:15→20:46)
[2021-02-28 15:00] VITALS: BP 112/72
--- NOTE | 2021-02-28 15:30 | RAD ---
MRI BRAIN WO Date: 02/28/2021 2:01 PM Indication: ataxia, concern for posterior stroke Comparison: CT 02/27/2021. MRI 08/07/2016. Technique: Multiplanar multisequence MRI of the brain was performed without intravenous contrast usin g the standard protocol. Findings: No acute infarct. No acute or chronic hemorrhage. The ventricles are normal in size and configuration without hydrocephalus. Minimal scattered FLAIR hyperintensities in the subcortical and periventricul ar deep white matter, a nonspecific finding, appropriate for patient age. The scalp and calvarium are normal. The pituitary and sella are normal. No Chiari malformation. Mild incompletely characterized degenerative spondylosis of the visualized upper cervical spine. The visualized orbits and globes are normal. Left maxillary sinus makes retention cyst. The mastoid a ir cells are clear. Normal flow voids within the vertebral, basilar, and internal carotid arteries indicating patency. IMPRESSION: No acute infarct, acute hemorrhage, mass, or hydrocephalus Electronically signed by: Jah Cerna MD (02/28/2021 3:28 PM) [id number]
[2021-02-28] MEDS: IBUPROFEN 400 MG TABLET. PO PRN (16:17)
[2021-02-28] MEDS: TOPIRAMATE 25 MG TABLET. PO SCH ×2 (16:17→20:46)
[2021-02-28 19:20] VITALS: BP 104/67
[2021-02-28] MEDS: INSULIN GLARGINE SYRINGE. SQ SCH (21:00)
[2021-02-28 22:55] VITALS: BP 101/59
[2021-03-01 03:11] VITALS: BP 108/64
--- NOTE | 2021-03-01 07:00 | PDOC ---
Provider Note Date of Service: DATE: 03/01/21 TIME: 06:58 Provider Note feels no more dizziness, but some R sided WALLIS- no new sxs- dont see nystagmus now, cerebellar exam seems ok- mri shows no infarct- will add po kcl, do esr , stil hold bp meds, follow Justifications for Admission Other Justification KALANI MAGDALENO MD Mar 01, 2021 07:00
[2021-03-01 07:53] LABS: CALCIUM 8.5 mg/dL (8.5-10.1); CREATININE 0.7 mg/dL (0.6-1.0); GFR 85.6
[2021-03-01 07:57] LABS: POTASSIUM 2.8 mmol/L (3.5-5.1)
[2021-03-01 07:59] VITALS: BP 111/67
[2021-03-01] MEDS ORDERED: ASPIRIN CHEWABLE 81 MG TABLET. PO SCH (08:00)
[2021-03-01] MEDS: POLYETHYLENE GLYCOL 3350 17 GM PACKET. PO SCH (09:00)
[2021-03-01] MEDS: ZONISAMIDE 100 MG CAPSULE. PO SCH ×2 (10:12→20:57)
[2021-03-01] MEDS: lamoTRIgine 100 MG TABLET. PO SCH ×2 (10:13→20:58)
[2021-03-01] MEDS: PANTOPRAZOLE 40 MG TABLET.DR. PO SCH (10:13)
[2021-03-01] MEDS: POTASSIUM CHLORIDE 10 MEQ TABLET.ER. PO SCH ×3 (10:13→17:31)
[2021-03-01] MEDS: TOPIRAMATE 25 MG TABLET. PO SCH ×2 (10:13→20:57)
[2021-03-01] MEDS: GABAPENTIN 300 MG CAPSULE. PO SCH ×2 (10:13→20:58)
[2021-03-01] MEDS: CITALOPRAM 20 MG TABLET. PO SCH (10:14)
[2021-03-01 10:27] VITALS: BP 97/58
--- NOTE | 2021-03-01 11:19 | CARD ---
MR#: [id number] Date of Study: 02/28/2021 Ordering Physician: DANIEL BROWN, Referring Physician: DANIEL BROWN, Tech: Winifred Walker, [facility] APPROVED REPORT EXAM: Two-dimensional and M-mode echocardiogram with Doppler and color Doppler. Other Information Quality : AverageHR: 72bpm INDICATION CVA/TIA Echo Enhancing Agent Indication: Rule Out Septal Defect Agent/Amount Used: Agitated Saline 10mL RISK FACTORS Diabetes 2D DIMENSIONS RVDd3.2 (2.9-3.5cm)Left Atrium(2D)3.3 (1.6-4.0cm) IVSd1.0 (0.7-1.1cm)Aortic Root(2D)3.4 (2.0-3.7cm) LVDd4.3 (3.9-5.9cm)LVOT Diameter2.0 (1.8-2.4cm) PWd1.0 (0.7-1.1cm)LVDs1.9 (2.5-4.0cm) FS (%) 55.7 %SV73.2 ml LVEF(%)86.5 (>50%) Aortic Valve AoV Peak Fernando.109.1cm/sAoV VTI20.8cm AO Peak GR.4.8mmHgLVOT VTI 12.45cm AO Mean GR.3mmHg Mitral Valve MV E Zsuxryoy18.5cm/sMV E Peak Gr.3mmHg MV DECEL [id number] A Ldspkwcv08.2cm/s MV E Mean Gr.2mmHgE/A Ratio0.8 TDI Lateral E' P. V8.30cm/sMedial E' P. V5.47cm/s E/Lateral E'6.7E/Medial E'10.1 Tricuspid Valve RAP [id number] Peak Gr.20mmHg [id number] LEFT VENTRICLE The left ventricle is normal size. There is borderline to mild concentric left ventricular hypertroph y. The left ventricular systolic function is normal and the ejection fraction is within normal range. The Ejection Fraction is 55-60%. There is normal LV segmental wall motion. Transmitral Doppler flow pattern is Grade I-abnormal relaxation pattern. RIGHT VENTRICLE The right ventricle is normal size. There is normal right ventricular wall thickness. The right ventr icular systolic function is normal. ATRIA The left atrium is borderline dilated. The right atrium is not well visualized. The interatrial septu m is intact with no evidence for an atrial septal defect or patent foramen ovale as noted on 2-D or D oppler imaging. Limited agitated saline study is grossly negative for right to left shunting. If ther e is high clinical concern for PFO/ASD, consider LOVE AORTIC VALVE The aortic valve is normal in structure and function. Doppler and Color Flow revealed trace aortic re gurgitation. There is no significant aortic valvular stenosis. Calculated aortic valve area is 1.91 c m2 with maximum pressure gradient of 5 mmHg and mean pressure gradient of 3 mmHg. MITRAL VALVE The mitral valve is normal in structure and function. There is no evidence of mitral valve prolapse. There is no mitral valve stenosis. Doppler and Color-flow revealed trace mitral regurgitation. TRICUSPID VALVE The tricuspid valve is normal in structure and function. Doppler and Color Flow revealed trace tricus pid regurgitation with an estimated PAP of 23 mmHg. There is no tricuspid valve stenosis. PULMONIC VALVE The pulmonic valve is not well visualized. Doppler and Color Flow revealed trace pulmonic valvular re gurgitation. There is no pulmonic valvular stenosis. GREAT VESSELS The aortic root is borderline enlarged measuring 3.4 cm. The IVC was not visualized. PERICARDIAL EFFUSION There is no evidence of significant pericardial effusion. Critical Notification Critical Value: No <Conclusion> The left ventricular systolic function is normal and the ejection fraction is within normal range. Th e Ejection Fraction is 55-60%. There is normal LV segmental wall motion. The interatrial septum is intact with no evidence for an atrial septal defect or patent foramen ovale as noted on 2-D or Doppler imaging. Limited agitated saline study is grossly negative for right to l eft shunting. If there is high clinical concern for PFO/ASD, consider LOVE The aortic root is borderline enlarged measuring 3.4 cm. Technically difficult study. Signed by : Joseph Walton, Electronically Approved : 03/01/2021 11:18:50
--- NOTE | 2021-03-01 11:29 | PDOC ---
PROGRESS NOTES Date of Service DATE: 03/01/21 TIME: 11:25 Assessment Problems Medical Problems: (1) Ataxia Status: Acute She says that she has had severe headache on the right side of her head and neck, now says that she fell and hit her head on a coffee table when she presented 2 nights ago. She says that she has a chronic headache as well, currently 8/10 and almost every day 8/10. 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 Oriented to time, place and person. PERRL. EOMI. CN: no focal findings. No nystagmus, no abnormalities on head-thrust test Muscle tone: normal. Muscle strength: 5/5 DTR: 2+ Plantar reflex: Flexor Gait: Walks very carefully and slowly, not really ataxic or wide-based Sensory exam: Stocking loss. No cerebellar signs elicited. Review of Relevant I have reviewed the following items vladimir (where applicable) has been applied. Labs Laboratory Tests Test 02/27/21 23:31 02/27/21 23:45 02/28/21 00:25 03/01/21 06:40 Glucose (Fingerstick) 171 mg/dL (70-99) White Blood Count 7.9 x10^3/uL (4.0-11.0) Red Blood Count 5.23 x10^6/uL (3.50-5.40) Hemoglobin 14.3 g/dL (12.0-15.5) Hematocrit 44.4 % (36.0-47.0) Mean Corpuscular Volume 85 fL (79-100) Mean Corpuscular Hemoglobin 27 pg (25-35) Mean Corpuscular Hemoglobin Concent 32 g/dL (31-37) Red Cell Distribution Width 18.1 % (11.5-14.5) Platelet Count 274 x10^3/uL (140-400) Neutrophils (%) (Auto) 66 % (31-73) Lymphocytes (%) (Auto) 24 % (24-48) Monocytes (%) (Auto) 6 % (0-9) Eosinophils (%) (Auto) 2 % (0-3) Basophils (%) (Auto) 1 % (0-3) Neutrophils # (Auto) 5.2 x10^3/uL (1.8-7.7) Lymphocytes # (Auto) 1.9 x10^3/uL (1.0-4.8) Monocytes # (Auto) 0.5 x10^3/uL (0.0-1.1) Eosinophils # (Auto) 0.2 x10^3/uL (0.0-0.7) Basophils # (Auto) 0.1 x10^3/uL (0.0-0.2) Prothrombin Time 13.1 SEC (11.7-14.0) Prothromb Time International Ratio 1.0 (0.8-1.1) Activated Partial Thromboplast Time 27 SEC (24-38) Sodium Level 139 mmol/L (136-145) 141 mmol/L (136-145) Potassium Level 3.1 mmol/L (3.5-5.1) 2.8 mmol/L (3.5-5.1) Chloride Level 100 mmol/L (98-107) 102 mmol/L (98-107) Carbon Dioxide Level 25 mmol/L (21-32) 24 mmol/L (21-32) Anion Gap 14 (6-14) 15 (6-14) Blood Urea Nitrogen 12 mg/dL (7-20) 9 mg/dL (7-20) Creatinine 1.0 mg/dL (0.6-1.0) 0.7 mg/dL (0.6-1.0) Estimated GFR (Cockcroft-Gault) 56.7 85.6 BUN/Creatinine Ratio 12 (6-20) Glucose Level 140 mg/dL (70-99) 110 mg/dL (70-99) Hemoglobin A1c 8.0 % (4.8-5.6) Calcium Level 8.5 mg/dL (8.5-10.1) 8.5 mg/dL (8.5-10.1) Total Bilirubin 0.4 mg/dL (0.2-1.0) Aspartate Amino Transf (AST/SGOT) 20 U/L (15-37) Alanine Aminotransferase (ALT/SGPT) 25 U/L (14-59) Alkaline Phosphatase 111 U/L (46-116) Troponin I High Sensitivity 6 ng/L (4-50) Total Protein 6.5 g/dL (6.4-8.2) Albumin 3.9 g/dL (3.4-5.0) Albumin/Globulin Ratio 1.5 (1.0-1.7) Triglycerides Level 184 mg/dL (0-150) Cholesterol Level 144 mg/dL (0-200) LDL Cholesterol, Calculated 67 mg/dL (0-100) VLDL Cholesterol, Calculated 37 mg/dL (0-40) Non-HDL Cholesterol Calculated 104 mg/dL (0-129) HDL Cholesterol 40 mg/dL (40-60) Cholesterol/HDL Ratio 3.6 Erythrocyte Sedimentation Rate 5 (0-25) Test 03/01/21 08:02 Glucose (Fingerstick) 121 mg/dL (70-99) Laboratory Tests Test 03/01/21 06:40 03/01/21 08:02 Erythrocyte Sedimentation Rate 5 (0-25) Sodium Level 141 mmol/L (136-145) Potassium Level 2.8 mmol/L (3.5-5.1) Chloride Level 102 mmol/L (98-107) Carbon Dioxide Level 24 mmol/L (21-32) Anion Gap 15 (6-14) Blood Urea Nitrogen 9 mg/dL (7-20) Creatinine 0.7 mg/dL (0.6-1.0) Estimated GFR (Cockcroft-Gault) 85.6 Glucose Level 110 mg/dL (70-99) Calcium Level 8.5 mg/dL (8.5-10.1) Glucose (Fingerstick) 121 mg/dL (70-99) Medications Current Medications Aspirin (Jerald Aspirin) 325 mg 1X ONCE PO Last administered on 02/28/21at 02:00; Start 02/28/21 at 02:00; Stop 02/28/21 at 02:01; Status DC Iohexol (Omnipaque 300 Mg/ml) 75 ml 1X ONCE IV Last administered on 02/28/21at 01:45; Start 02/28/21 at 01:45; Stop 02/28/21 at 01:46; Status DC Info (CONTRAST GIVEN -- Rx MONITORING) 1 each PRN DAILY PRN MC SEE COMMENTS; Start 02/28/21 at 02:00; Stop 03/02/21 at 01:59 Aspirin (Aspirin Chewable) 81 mg DAILY PO Last administered on 02/28/21at 12:10; Start 02/28/21 at 09:00; Stop 02/28/21 at 14:37; Status DC Gabapentin (Neurontin) 300 mg BID PO Last administered on 03/01/21at 10:13; Sta rt 02/28/21 at 09:00 Losartan Potassium (Cozaar) 50 mg DAILY PO ; Start 02/28/21 at 09:00; Stop 02/28/21 at 08:07; Status DC Ondansetron HCl (Zofran Odt) 4 mg PRN Q4HRS PRN PO NAUSEA/VOMITING; Start 02/28/21 at 08:15 Polyethylene Glycol (miraLAX PACKET) 17 gm DAILY PO Last administered on 02/28/21at 12:11; Start 02/28/21 at 09:00 Zonisamide (Zonegran) 200 mg BID PO Last administered on 03/01/21at 10:12; Start 02/28/21 at 09:00 Citalopram Hydrobromide (CeleXA) 20 mg DAILY PO Last administered on 03/01/21at 10:14; Start 02/28/21 at 09:00 Non-Formulary Medication (Hydrochlorothiazide (Hydrochlorothiazide Tablet)) 12.5 mg DAILY PO ; Start 02/28/21 at 09:00; Stop 02/28/21 at 08:07; Status DC Insulin Glargine (Lantus Syringe) 35 unit QHS SQ ; Start 02/28/21 at 21:00 Lamotrigine (LaMICtal) 100 mg BID PO ; Start 02/28/21 at 09:00; Stop 02/28/21 at 10:21; Status DC Metformin HCl (Glucophage) 1,000 mg BIDWMEALS PO ; Start 03/02/21 at 08:00 Pantoprazole Sodium (Protonix) 40 mg DAILYAC PO Last administered on 03/01/21at 10:13; Start 02/28/21 at 09:00 Non-Formulary Medication (Topiramate (Trokendi Xr)) 1 cap DAILY PO ; Start 02/28/21 at 09:00; Status UNV Dextrose (Dextrose 50%-Water Syringe) 12.5 gm PRN Q15MIN PRN IV SEE COMMENTS; Start 02/28/21 at 08:15 Aspirin (Aspirin Chewable) 81 mg DAILYWBKFT PO Last administered on 03/01/21at 10:14; Start 03/01/21 at 08:00 Lamotrigine (LaMICtal) 200 mg BID PO Last administered on 03/01/21at 10:13; Start 02/28/21 at 21:00 Topiramate (Topamax) 50 mg BID PO Last administered on 03/01/21at 10:13; Start 02/28/21 at 15:00 Ibuprofen (Motrin) 400 mg PRN Q6HRS PRN PO INFLAMMATION Last administered on 02/28/21at 16:17; Start 02/28/21 at 16:15 Potassium Chloride (Klor-Con) 10 meq TIDAFTMEAL PO Last administered on 03/01/21at 10:13; Start 03/01/21 at 09:00 Active Scripts Active Ondansetron Odt (Ondansetron) 4 Mg Tab.rapdis 1 Tab PO PRN Q6-8HRS Miralax (Polyethylene Glycol 3350) 119 Gm Powder 17 Gm PO DAILY dissolve in water Reported Tresiba (Insulin Degludec) 100 Unit/1 Ml Vial 35 Unit SQ HS Trulicity (Dulaglutide) 0.75 Mg/0.5 Ml Pen.injctr 0.75 Mg SQ QSU Zonegran (Zonisamide) 100 Mg Capsule 2 Cap PO BID 30 Days Trokendi Xr (Topiramate) 100 Mg Cap.er.24h 1 Cap PO DAILY 30 Days Gabapentin (Gabapentin) 300 Mg Capsule 300 Mg PO BID Aspirin 81 Mg Tab.chew 81 Mg PO DAILY Escitalopram Oxalate 10 Mg Tablet 10 Mg PO DAILY Cetirizine Hcl 10 Mg Tablet 10 Mg PO DAILY Lamotrigine 200 Mg Tablet 100 Mg PO BID Losartan Potassium (Losartan Potassium) 25 Mg Tablet 50 Mg PO DAILY Hydrochlorothiazide Tablet (Hydrochlorothiazide) 12.5 Mg Tablet 12.5 Mg PO DAILY Omeprazole 20 Mg Tablet.dr 40 Mg PO DAILY Metformin Hcl 1,000 Mg Tablet 1,000 Mg PO BIDWMEALS Vitals/I & O Vital Sign - Last 24 Hours 02/28/21 02/28/21 02/28/21 02/28/21 11:30 15:00 19:20 20:15 Temp 97.9 97.7 97.9 97.7 Pulse 76 73 Resp 18 16 B/P (MAP) 112/72 (85) 104/67 (79) Pulse Ox 99 99 O2 Delivery Room Air Room Air Room Air Room Air 02/28/21 03/01/21 03/01/21 03/01/21 22:55 03:11 07:59 10:27 Temp 97.8 97.6 97.6 97.3 97.8 97.6 97.6 97.3 Pulse 65 67 64 71 Resp 16 16 16 16 B/P (MAP) 101/59 (73) 108/64 (79) 111/67 (82) 97/58 (71) Pulse Ox 98 92 96 95 O2 Delivery Room Air Room Air Room Air Room Air Intake and Output 02/28/21 02/28/21 03/01/21 15:00 23:00 07:00 Intake Total 120 ml 0 ml 300 ml Output Total 800 ml 1600 ml Balance -680 ml -1600 ml 300 ml Images MRI BRAIN WO Date: 02/28/2021 2:01 PM Indication: ataxia, concern for posterior stroke Comparison: CT 02/27/2021. MRI 08/07/2016. Technique: Multiplanar multisequence MRI of the brain was performed without intravenous contrast using the standard protocol. Findings: No acute infarct. No acute or chronic hemorrhage. The ventricles are normal in size and configuration without hydrocephalus. Minimal scattered FLAIR hyperintensities in the subcortical and periventricular deep white matter, a nonspecific finding, appropriate for patient age. The scalp and calvarium are normal. The pituitary and sella are normal. No Chiari malformation. Mild incompletely characterized degenerative spondylosis of the visualized upper cervical spine. The visualized orbits and globes are normal. Left maxillary sinus makes retention cyst. The mastoid air cells are clear. Normal flow voids within the vertebral, basilar, and internal carotid arteries indicating patency. IMPRESSION: No acute infarct, acute hemorrhage, mass, or hydrocephalus Justicifation of Admission Dx: Justifications for Admission: Justification of Admission Dx: N/A FOREIGN PACHECO MD Mar 01, 2021 11:29
--- NOTE | 2021-03-01 12:54 | NUR ---
SS following for discharge planning. SS reviewed pt chart and discussed with pt RN. Pt is currently on room air. Critical potassium today. PO diet. PT recommended chcf unit. SS met with pt in room to discuss discharge planning. As observed, pt was ambulating in room without device. Pt reported that she does not need chcf unit or home healthcare. Pt reporting that she will return to home with self care. Pt's RN notified. SS will continue to follow for discharge planning.
[2021-03-01] MEDS: IBUPROFEN 400 MG TABLET. PO PRN ×2 (13:15→19:24)
--- NOTE | 2021-03-01 14:32 | RAD ---
MR CERVICAL SPINE WO History:Reason: trauma, neck pain, numbness, vertigo / Spl. Instructions: / History: Technique: Multiplanar, multi sequential noncontrast MR imaging was performed of the cervical spine. Comparison: None Findings: Degraded examination. Normal vertebral body height and alignment. No fracture. No pathologic signal abnormality within the cervical spinal cord. C2-C3: No canal or neuroforaminal narrowing. C3-C4: Small disc bulge. No canal narrowing. No neuroforaminal narrowing. C4-C5: Small disc bulge. No canal or neuroforaminal narrowing. Mild facet arthropathy. C5-C6: Small disc extrusion extending inferiorly. Mild canal narrowing. Cord flattening. Moderate ri ght neuroforaminal narrowing due to uncovertebral hypertrophy and facet arthropathy. No left neurofor aminal narrowing. C6-C7: Broad-based disc bulge. Mild canal narrowing. Cord flattening. Moderate right neuroforaminal narrowing. No left neuroforaminal narrowing. C7-T1: Small disc bulge. No canal narrowing. No neuroforaminal narrowing. Impression: 1. Motion degraded evaluation. 2. Mild multilevel cervical spondylosis most prominent C5-C6 and C6-C7. 3. Mild canal narrowing with cord flattening C5-C6 and C6-C7. 4. Moderate right C5-C6 and C6-C7 neuroforaminal narrowing. Electronically signed by: Go Barillas DO (03/01/2021 2:30 PM) [id number]
[2021-03-01 14:50] VITALS: BP 93/56
[2021-03-01 18:41] VITALS: BP 110/58
[2021-03-01] MEDS: INSULIN GLARGINE SYRINGE. SQ SCH (21:02)
[2021-03-01 22:19] VITALS: BP 101/63
[2021-03-02 02:04] VITALS: BP 95/52
[2021-03-02 06:00] VITALS: BP 100/56
--- NOTE | 2021-03-02 07:42 | PDOC ---
Provider Note Date of Service: DATE: 03/02/21 TIME: 07:32 Provider Note bp still < 120 so still off losartan/hctz- K+ 2.8 and on po kcl 2 days - esr ok, cerv mri ok- recent dizziness and syncope could have been hypotensive so will stay off meds until seen in 2 weeks- could dc if dr rojas ok Justifications for Admission Other Justification KALANI MAGDALENO MD Mar 02, 2021 07:42
[2021-03-02] MEDS ORDERED: metFORMIN 500 MG TABLET PO SCH (08:00)
[2021-03-02] MEDS: POLYETHYLENE GLYCOL 3350 17 GM PACKET. PO SCH (09:00)
[2021-03-02] MEDS: lamoTRIgine 100 MG TABLET. PO SCH (09:37)
[2021-03-02] MEDS: POTASSIUM CHLORIDE 10 MEQ TABLET.ER. PO SCH ×2 (09:39→14:05)
[2021-03-02] MEDS: PANTOPRAZOLE 40 MG TABLET.DR. PO SCH (09:39)
[2021-03-02] MEDS: ZONISAMIDE 100 MG CAPSULE. PO SCH (09:39)
[2021-03-02] MEDS: GABAPENTIN 300 MG CAPSULE. PO SCH (09:40)
[2021-03-02] MEDS: CITALOPRAM 20 MG TABLET. PO SCH (09:40)
[2021-03-02] MEDS: TOPIRAMATE 25 MG TABLET. PO SCH (09:41)
[2021-03-02 10:30] VITALS: BP 96/54
[2021-03-02] MEDS: IBUPROFEN 400 MG TABLET. PO PRN (11:05)
--- NOTE | 2021-03-02 11:50 | NUR ---
SS following up with discharge planning. SS reviewed pt chart and discussed with pt RN. Pt is currently on room air. PT/OT now recommending home with home healthcare. SS met with pt and discussed discharge planning and home healthcare. Pt declining need for home healthcare at this time. Pt requesting to return to home with self care. Pt's RN notified. SS will continue to follow for discharge planning.
--- NOTE | 2021-03-02 12:45 | PDOC ---
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 Oriented to time, place and person. PERRL. EOMI. CN: no focal findings. No nystagmus, no abnormalities on head-thrust test Muscle tone: normal. Muscle strength: 5/5 DTR: 2+ Plantar reflex: Flexor Gait: Much better, normal base Sensory exam: Stocking loss. No cerebellar signs elicited. Review of Relevant I have reviewed the following items vladimir (where applicable) has been applied. Labs Laboratory Tests Test 03/01/21 06:40 03/01/21 08:02 03/01/21 11:31 Erythrocyte Sedimentation Rate 5 (0-25) Sodium Level 141 mmol/L (136-145) Potassium Level 2.8 mmol/L (3.5-5.1) Chloride Level 102 mmol/L (98-107) Carbon Dioxide Level 24 mmol/L (21-32) Anion Gap 15 (6-14) Blood Urea Nitrogen 9 mg/dL (7-20) Creatinine 0.7 mg/dL (0.6-1.0) Estimated GFR (Cockcroft-Gault) 85.6 Glucose Level 110 mg/dL (70-99) Calcium Level 8.5 mg/dL (8.5-10.1) Glucose (Fingerstick) 121 mg/dL (70-99) 164 mg/dL (70-99) Medications Current Medications Aspirin (Jerald Aspirin) 325 mg 1X ONCE PO Last administered on 02/28/21at 02:00; Start 02/28/21 at 02:00; Stop 02/28/21 at 02:01; Status DC Iohexol (Omnipaque 300 Mg/ml) 75 ml 1X ONCE IV Last administered on 02/28/21at 01:45; Start 02/28/21 at 01:45; Stop 02/28/21 at 01:46; Status DC Info (CONTRAST GIVEN -- Rx MONITORING) 1 each PRN DAILY PRN MC SEE COMMENTS; Start 02/28/21 at 02:00; Stop 03/02/21 at 01:59; Status DC Aspirin (Aspirin Chewable) 81 mg DAILY PO Last administered on 02/28/21at 12:10; Start 02/28/21 at 09:00; Stop 02/28/21 at 14:37; Status DC Gabapentin (Neurontin) 300 mg BID PO Last administered on 03/02/21at 09:40; Start 02/28/21 at 09:00 Losartan Potassium (Cozaar) 50 mg DAILY PO ; Start 02/28/21 at 09:00; Stop 02/28/21 at 08:07; Status DC Ondansetron HCl (Zofran Odt) 4 mg PRN Q4HRS PRN PO NAUSEA/VOMITING; Start 02/28/21 at 08:15 Polyethylene Glycol (miraLAX PACKET) 17 gm DAILY PO Last administered on 02/28/21at 12:11; Start 02/28/21 at 09:00 Zonisamide (Zonegran) 200 mg BID PO Last administered on 03/02/21at 09:39; Start 02/28/21 at 09:00 Citalopram Hydrobromide (CeleXA) 20 mg DAILY PO Last administered on 03/02/21at 09:40; Start 02/28/21 at 09:00 Non-Formulary Medication (Hydrochlorothiazide (Hydrochlorothiazide Tablet)) 12.5 mg DAILY PO ; Start 02/28/21 at 09:00; Stop 02/28/21 at 08:07; Status DC Insulin Glargine (Lantus Syringe) 35 unit QHS SQ Last administered on 03/01/21at 21:02; Start 02/28/21 at 21:00 Lamotrigine (LaMICtal) 100 mg BID PO ; Start 02/28/21 at 09:00; Stop 02/28/21 at 10:21; Status DC Metformin HCl (Glucophage) 1,000 mg BIDWMEALS PO Last administered on 03/02/21at 09:41; Start 03/02/21 at 08:00 Pantoprazole Sodium (Protonix) 40 mg DAILYAC PO Last administered on 03/02/21at 09:39; Start 02/28/21 at 09:00 Non-Formulary Medication (Topiramate (Trokendi Xr)) 1 cap DAILY PO ; Start 02/28/21 at 09:00; Status UNV Dextrose (Dextrose 50%-Water Syringe) 12.5 gm PRN Q15MIN PRN IV SEE COMMENTS; Start 02/28/21 at 08:15 Aspirin (Aspirin Chewable) 81 mg DAILYWBKFT PO Last administered on 03/01/21at 10:14; Start 03/01/21 at 08:00; Stop 03/02/21 at 07:43; Status DC Lamotrigine (LaMICtal) 200 mg BID PO Last administered on 03/02/21at 09:37; Start 02/28/21 at 21:00 Topiramate (Topamax) 50 mg BID PO Last administered on 03/02/21at 09:41; Start 02/28/21 at 15:00 Ibuprofen (Motrin) 400 mg PRN Q6HRS PRN PO INFLAMMATION Last administered on 03/02/21at 11:05; Start 02/28/21 at 16:15 Potassium Chloride (Klor-Con) 10 meq TIDAFTMEAL PO Last administered on 03/02/21at 09:39; Start 03/01/21 at 09:00 Active Scripts Active Ondansetron Odt (Ondansetron) 4 Mg Tab.rapdis 1 Tab PO PRN Q6-8HRS Miralax (Polyethylene Glycol 3350) 119 Gm Powder 17 Gm PO DAILY dissolve in water Reported Tresiba (Insulin Degludec) 100 Unit/1 Ml Vial 35 Unit SQ HS Trulicity (Dulaglutide) 0.75 Mg/0.5 Ml Pen.injctr 0.75 Mg SQ QSU Zonegran (Zonisamide) 100 Mg Capsule 2 Cap PO BID 30 Days Trokendi Xr (Topiramate) 100 Mg Cap.er.24h 1 Cap PO DAILY 30 Days Gabapentin (Gabapentin) 300 Mg Capsule 300 Mg PO BID Aspirin 81 Mg Tab.chew 81 Mg PO DAILY Escitalopram Oxalate 10 Mg Tablet 10 Mg PO DAILY Cetirizine Hcl 10 Mg Tablet 10 Mg PO DAILY Lamotrigine 200 Mg Tablet 100 Mg PO BID Losartan Potassium (Losartan Potassium) 25 Mg Tablet 50 Mg PO DAILY Hydrochlorothiazide Tablet (Hydrochlorothiazide) 12.5 Mg Tablet 12.5 Mg PO DAILY Omeprazole 20 Mg Tablet.dr 40 Mg PO DAILY Metformin Hcl 1,000 Mg Tablet 1,000 Mg PO BIDWMEALS Vitals/I & O Vital Sign - Last 24 Hours 03/01/21 03/01/21 03/01/21 03/01/21 14:50 18:41 19:55 22:19 Temp 97.8 98.0 98.3 97.8 98.0 98.3 Pulse 70 68 67 Resp 16 16 16 B/P (MAP) 93/56 (68) 110/58 (75) 101/63 (76) Pulse Ox 94 96 94 O2 Delivery Room Air Room Air Room Air Room Air 03/02/21 03/02/21 03/02/21 02:04 06:00 10:30 Temp 98.2 98.0 97.7 98.2 98.0 97.7 Pulse 62 68 69 Resp 16 16 16 B/P (MAP) 95/52 (66) 100/56 (71) 96/54 (68) Pulse Ox 94 95 96 O2 Delivery Room Air Room Air Room Air Intake and Output 03/01/21 03/01/21 03/02/21 15:00 23:00 07:00 Intake Total 300 ml 500 ml 0 ml Output Total 400 ml Balance 300 ml 100 ml 0 ml Images MR CERVICAL SPINE WO History:Reason: trauma, neck pain, numbness, vertigo / Spl. Instructions: / History: Technique: Multiplanar, multi sequential noncontrast MR imaging was performed of the cervical spine. Comparison: None Findings: Degraded examination. Normal vertebral body height and alignment. No fracture. No pathologic signal abnormality within the cervical spinal cord. C2-C3: No canal or neuroforaminal narrowing. C3-C4: Small disc bulge. No canal narrowing. No neuroforaminal narrowing. C4-C5: Small disc bulge. No canal or neuroforaminal narrowing. Mild facet arthropathy. C5-C6: Small disc extrusion extending inferiorly. Mild canal narrowing. Cord flattening. Moderate right neuroforaminal narrowing due to uncovertebral hypertrophy and facet arthropathy. No left neuroforaminal narrowing. C6-C7: Broad-based disc bulge. Mild canal narrowing. Cord flattening. Moderate right neuroforaminal narrowing. No left neuroforaminal narrowing. C7-T1: Small disc bulge. No canal narrowing. No neuroforaminal narrowing. Impression: 1. Motion degraded evaluation. 2. Mild multilevel cervical spondylosis most prominent C5-C6 and C6-C7. 3. Mild canal narrowing with cord flattening C5-C6 and C6-C7. 4. Moderate right C5-C6 and C6-C7 neuroforaminal narrowing. Justicifation of Admission Dx: Justifications for Admission: Justification of Admission Dx: N/A FOREIGN PACHECO MD Mar 02, 2021 12:45
[2021-03-02 14:50] VITALS: BP 102/62
--- NOTE | 2021-03-02 15:53 | NUR ---
DISCHARGE PIV ET TELEMETRY DISCONTINUED AT THIS TIME. PT MEDICATION, FOLLOW UP AND DISCHARGE INFORMATION REVIEWED WITH PT AND FAMILY IN ATTENDANCE. PT ASKS PERTINENT QUESTIONS AND VERBALIZES UNDERSTANDING. ESCORTED TO PRIVATE VEHICLE FOR DISCHARGE BY [facility]. PT IS IN STABLE CONDITION AT TIME OF DISCHARGE.
== END 2021-03-02 15:54 | disposition home or self-care (01) ==
LOC: ER 23:00 → INTOOBSV 02-28 01:26 → ED HOLD 02-28 01:26 → 6 SOUTH 02-28 11:19
PROVIDERS: ADMIT Family Medicine; ATTEND Family Medicine
DX: R27.0 Ataxia, unspecified (principal); H55.00 Unspecified nystagmus; E11.40 Type 2 diabetes mellitus with diabetic neuropathy, unspecified; K59.00 Constipation, unspecified; S06.0X9A Concussion with loss of consciousness of unspecified duration, initial encounter; G40.409 Other generalized epilepsy and epileptic syndromes, not intractable, without status epilepticus; M47.812 Spondylosis without myelopathy or radiculopathy, cervical region; R51.9 Headache, unspecified; M48.00 Spinal stenosis, site unspecified; Z98.41 Cataract extraction status, right eye; Z79.899 Other long term (current) drug therapy; Z98.890 Other specified postprocedural states; Z90.49 Acquired absence of other specified parts of digestive tract; Z79.82 Long term (current) use of aspirin; Z79.4 Long term (current) use of insulin; Z79.84 Long term (current) use of oral hypoglycemic drugs; W19.XXXA Unspecified fall, initial encounter; W22.03XA Walked into furniture, initial encounter; Y92.89 Other specified places as the place of occurrence of the external cause; Y93.89 Activity, other specified; Y99.8 Other external cause status
CPT/HCPCS: 36415; 70450; 70496; 70498; 70551; 72141; 80048; 80053; 80061; 82962; 83036; 84484; 85025; 85610; 85651; 85730; 92610; 93005; 93306; 96372; 97110; 97161; 97165; 97530; 97535; 99285; G0378; J1815; Q9967; G0379